=== PATIENT | male | born 1950 | race Caucasian/White ===

== ENCOUNTER 2020-03-04 09:25 | Outpatient (REF) | payer MEDICARE, BC, SELFPAY ==
[2020-03-04 10:26] LABS: MANUAL DIFF FLAG NO
[2020-03-04 10:31] LABS: Basophils Absolute Auto 0.1 X10*3/uL (0.0-0.2); Basophils Percent Auto 1.1 % (0-2); Eosinophils Absolute Auto 0.4 X10*3/uL (0.0-0.4); Eosinophils Percent Auto 5.1 % (0-4); Hematocrit 41.1 % (42-52); Hemoglobin 13.5 g/dl (14.0-18.0); Imm Gran Abs Auto 0.01 X10*3/uL (0.00-0.03); Imm Gran Pct Auto 0.1 % (0.0-0.4); Lymphocytes Absolute Auto 2.1 X10*3/uL (1.2-4.9); Lymphocytes Percent Auto 29.9 % (20-40); Mean Corpuscular HGB Conc 32.8 g/dl (31.0-36.0); Mean Corpuscular Volume 94.5 fL (80-98); Mean Platelet Volume 10.4 fL (9.4-12.4); Monocytes Percent Auto 13.6 % (2-11); Neutrophils Absolute Auto 3.5 X10*3/uL (2.0-8.3); Neutrophils Percent Auto 50.2 % (45-73); Platelet Count 281 X10*3/uL (160-400); Red Blood Count 4.35 X10*6/uL (4.60-5.80); Red Cell Distribution Width 13.8 % (11.0-16.0); White Blood Count 7.1 X10*3/uL (4.8-10.8)
[2020-03-04 10:39] LABS: Glucose Urine UA NEG (NEG); Leukocyte Esterase Urine NEG (NEG); Nitrite Urine NEG (NEG); Urine Blood TRACE (NEG); Urine Ketones NEG (NEG); Urine Protein NEG (NEG-TRACE)
[2020-03-04 10:46] LABS: Appearance Urine CLEAR; Color Urine YELLOW
[2020-03-04 10:56] LABS: Mucus Urine 1+ /LPF; WBC Urine 0-2 /HPF (0-4)
[2020-03-04 10:58] LABS: Alanine Aminotransferase 14 U/L (0-40); Albumin Level 3.9 g/dL (3.5-5.0); Alkaline Phosphatase 57 U/L (39-117); Anion Gap 13 (12-20); Aspartate Amino Transferase 16 U/L (5-37); Bilirubin Total 0.7 mg/dL (0.0-1.0); Blood Urea Nitrogen 19 mg/dL (9-16); Calcium 8.2 mg/dL (8.4-10.2); Carbon Dioxide 28 mmol/L (22-29); Chloride 104 mmol/L (96-108); Cholesterol 144 mg/dL; Estimated Glomerular Filt Rate > 60; Glucose Fasting 96 mg/dL (60-99); HDL Cholesterol 53 mg/dL; LDL Cholesterol Calculated 73 mg/dl; Potassium 4.7 mmol/l (3.3-5.1); Sodium 140 mmol/L (135-145); Total Protein 5.9 g/dL (6.5-8.0); Triglycerides 92 mg/dL
[2020-03-04 11:12] LABS: Prostate Specific Antigen 0.22 ng/mL (<0.05-4.0)
== END 2020-03-04 09:26 | disposition home or self-care (01) ==
LOC: HO.10HDL 09:25
PROVIDERS: Visit Provider Internal Medicine
DX: R35.1 Nocturia (principal); J44.9 Chronic obstructive pulmonary disease, unspecified; I10 Essential (primary) hypertension
CPT/HCPCS: 36415; 80053; 80061; 81001; 84153; 85025

== ENCOUNTER 2020-12-19 15:19 | Outpatient (REF) | payer MEDICARE, BC, SELFPAY ==
--- NOTE | ~2020-12-19 | XR_ITS ---
EXAMINATION: XR HIP, LEFT CLINICAL INFORMATION: Left hip pain. Status post fall. COMPARISON: None TECHNIQUE: AP pelvis and left hip 2 views. FINDINGS: AP PELVIS: There is normal symmetry of bilateral hip joints and SI joints. LEFT HIP: There is a nondisplaced fracture involving the greater trochanter. No dislocation or fracture involving the joint space or the head of the femur. The soft tissues are normal. XR/XR hip LT w PEL1V IMPRESSION: None nondisplaced fracture left greater trochanter. Bilateral hip joint space and SI joints are symmetrical and normal.
--- NOTE | ~2020-12-19 | XR_ITS ---
EXAMINATION: XR HIP, LEFT XR/XR hip LT 1V FINDINGS/IMPRESSION: Iterative imaging was performed to the previous exam. A left greater trochanter nondisplaced fracture is noted.
== END 2020-12-19 15:20 | disposition home or self-care (01) ==
LOC: HO.XRAY 15:19
PROVIDERS: PCP Internal Medicine; Visit Provider Internal Medicine
DX: M25.552 Pain in left hip (principal); Z91.81 History of falling
CPT/HCPCS: 73501; 73502

== ENCOUNTER 2020-12-25 06:38 | Outpatient (REF) | payer MEDICARE, OTHER, SELFPAY ==
--- NOTE | ~2020-12-25 | XR_ITS ---
EXAMINATION: PELVIS AND LEFT HIP X-RAY CLINICAL INFORMATION: Pain COMPARISON: Previous x-ray 12/19/2020 TECHNIQUE: One view of the pelvis and 2 views of the left hip FINDINGS: There is a comminuted nondisplaced fracture of the left greater trochanter. This appears unchanged. There is mild arthritis at both hip joints, left greater than right. There is a small 5 mm sclerotic lesion in the left femoral intertrochanteric region similar to previous exams that is stable and may represent an enchondroma or bone island. Bones of the pelvis are unremarkable. There is evidence of atherosclerotic disease. XR/XR pelvis 1-2V IMPRESSION: No change in the comminuted nondisplaced left greater trochanter fracture from recent exam.
--- NOTE | ~2020-12-25 | XR_ITS ---
EXAMINATION: PELVIS AND LEFT HIP X-RAY CLINICAL INFORMATION: Pain COMPARISON: Previous x-ray 12/19/2020 TECHNIQUE: One view of the pelvis and 2 views of the left hip FINDINGS: There is a comminuted nondisplaced fracture of the left greater trochanter. This appears unchanged. There is mild arthritis at both hip joints, left greater than right. There is a small 5 mm sclerotic lesion in the left femoral intertrochanteric region similar to previous exams that is stable and may represent an enchondroma or bone island. Bones of the pelvis are unremarkable. There is evidence of atherosclerotic disease. XR/XR hip LT min 2V IMPRESSION: No change in the comminuted nondisplaced left greater trochanter fracture from recent exam.
== END 2020-12-25 06:39 | disposition home or self-care (01) ==
LOC: HO.HOSX 06:38
PROVIDERS: Visit Provider Physician Assistant
DX: S72.112D Displaced fracture of greater trochanter of left femur, subsequent encounter for closed fracture with routine healing (principal)
CPT/HCPCS: 72170; 73502; 99202

== ENCOUNTER 2021-03-12 07:56 | Outpatient (REF) | payer MEDICARE, OTHER, SELFPAY ==
--- NOTE | ~2021-03-12 | XR_ITS ---
EXAMINATION: XR SHOULDER, RIGHT CLINICAL INFORMATION: Right shoulder pain COMPARISON: None TECHNIQUE: Right shoulder is imaged in 5 views. FINDINGS: There is no fracture, dislocation, destructive process. The acromioclavicular alignment is normal. The glenohumeral joint appears normal with no narrowing or erosive change. There are degenerative changes acromioclavicular joint with inferior spurring. There is fine calcific tendinosis distal infraspinatus tendon on the internal rotation view adjacent to the tuberosity. XR/XR shoulder RT min 2V IMPRESSION: 1. Degenerative changes acromioclavicular joint with inferior spurring. 2. Mild calcific tendinosis in region of distal infraspinatus.
[2021-03-12 08:22] LABS: MANUAL DIFF FLAG NO
[2021-03-12 09:14] LABS: Basophils Absolute Auto 0.1 X10*3/uL (0.0-0.2); Basophils Percent Auto 1.2 % (0-2); Eosinophils Absolute Auto 0.8 X10*3/uL (0.0-0.4); Eosinophils Percent Auto 10.1 % (0-4); Hematocrit 40.5 % (42.0-52.0); Hemoglobin 13.5 g/dl (14.0-18.0); Imm Gran Abs Auto 0.02 X10*3/uL (0.00-0.03); Imm Gran Pct Auto 0.3 % (0.0-0.4); Lymphocytes Absolute Auto 2.6 X10*3/uL (1.2-4.9); Lymphocytes Percent Auto 33.5 % (20-40); Mean Corpuscular HGB Conc 33.3 g/dl (31.0-36.0); Mean Corpuscular Hemoglobin 31.1 pg (27.0-33.0); Mean Corpuscular Volume 93.3 fL (80.0-98.0); Mean Platelet Volume 10.1 fL (9.4-12.4); Monocytes Absolute Auto 1.1 X10*3/uL (0.1-1.2); Monocytes Percent Auto 14.5 % (2-11); Neutrophils Absolute Auto 3.1 x10*3/uL (2.0-8.3); Neutrophils Percent Auto 40.4 % (45-73); Platelet Count 281 X10*3/uL (160-400); Red Blood Count 4.34 X10*6/uL (4.60-5.80); Red Cell Distribution Width 14.1 % (11.0-16.0); White Blood Count 7.7 X10*3/uL (4.8-10.8)
[2021-03-12 09:31] LABS: Alanine Aminotransferase 16 U/L (0-40); Alkaline Phosphatase 64 U/L (39-117); Anion Gap 10 (12-20); Aspartate Amino Transferase 16 U/L (5-37); Bilirubin Total 0.6 mg/dL (0.0-1.0); Blood Urea Nitrogen 20 mg/dL (9-16); Calcium 8.9 mg/dL (8.4-10.2); Carbon Dioxide 29 mmol/L (22-29); Chloride 103 mmol/L (96-108); Cholesterol 151 mg/dL; Estimated Glomerular Filt Rate > 60; Glucose Fasting 98 mg/dL (60-99); HDL Cholesterol 61 mg/dL; LDL Cholesterol Calculated 74 mg/dl; Potassium 4.2 mmol/L (3.3-5.1); Sodium 138 mmol/L (135-145); Total Protein 6.2 g/dL (6.5-8.0); Triglycerides 82 mg/dL
== END 2021-03-12 07:57 | disposition home or self-care (01) ==
LOC: HO.LAB 07:56
PROVIDERS: PCP Internal Medicine; Visit Provider Internal Medicine
DX: Z12.5 Encounter for screening for malignant neoplasm of prostate (principal); M25.511 Pain in right shoulder; I10 Essential (primary) hypertension; J44.9 Chronic obstructive pulmonary disease, unspecified; N40.0 Benign prostatic hyperplasia without lower urinary tract symptoms
CPT/HCPCS: 36415; 73030; 80053; 80061; 84153; 85025

== ENCOUNTER 2022-03-16 07:22 | Outpatient (REF) | payer BC, MEDICARE, SELFPAY ==
--- NOTE | ~2022-03-16 | XR_ITS ---
EXAMINATION: XR CHEST CLINICAL INFORMATION: Cough COMPARISON: Chest radiographs 02/04/2016, 05/08/2012 TECHNIQUE: 2 views of the chest were obtained. FINDINGS: There is hyperinflation similar to prior exam. The lungs are clear. The vascularity is normal. There is no airspace consolidation or groundglass opacity or effusion. Heart size normal. Costophrenic sulci are well-defined. The hilar and mediastinal contours are unremarkable. Bony structures again show accentuated thoracic kyphosis with multilevel degenerative disc changes old stable wedging midthoracic vertebral bodies. XR/XR chest 2V IMPRESSION: Hyperinflation. Lungs clear. No acute intrathoracic disease.
[2022-03-16 07:47] LABS: MANUAL DIFF FLAG NO
[2022-03-16 08:19] LABS: Basophils Absolute Auto 0.1 X10*3/uL (0.0-0.2); Basophils Percent Auto 1.2 % (0-2); Eosinophils Absolute Auto 0.5 X10*3/uL (0.0-0.4); Eosinophils Percent Auto 6.5 % (0-4); Hematocrit 43.5 % (42.0-52.0); Hemoglobin 14.3 g/dl (14.0-18.0); Imm Gran Abs Auto 0.01 X10*3/uL (0.00-0.03); Imm Gran Pct Auto 0.1 % (0.0-0.4); Lymphocytes Absolute Auto 2.7 X10*3/uL (1.2-4.9); Lymphocytes Percent Auto 37.1 % (20-40); Mean Corpuscular HGB Conc 32.9 g/dl (31.0-36.0); Mean Corpuscular Hemoglobin 30.8 pg (27.0-33.0); Mean Corpuscular Volume 93.8 fL (80.0-98.0); Mean Platelet Volume 9.9 fL (9.4-12.4); Monocytes Percent Auto 14.1 % (2-11); Platelet Count 294 X10*3/uL (160-400); Red Blood Count 4.64 X10*6/uL (4.60-5.80); Red Cell Distribution Width 14.2 % (11.0-16.0); White Blood Count 7.3 X10*3/uL (4.8-10.8)
[2022-03-16 09:18] LABS: Alanine Aminotransferase 17 U/L (0-40); Albumin Level 4.1 g/dL (3.5-5.0); Alkaline Phosphatase 56 U/L (39-117); Anion Gap 15 (12-20); Aspartate Amino Transferase 17 U/L (5-37); Bilirubin Total 0.5 mg/dL (0.0-1.0); Blood Urea Nitrogen 19 mg/dL (9-16); Calcium 9.2 mg/dL (8.4-10.2); Carbon Dioxide 27 mmol/L (22-29); Chloride 103 mmol/L (96-108); Cholesterol 163 mg/dL; Estimated Glomerular Filt Rate > 60; Glucose Fasting 103 mg/dL (60-99); HDL Cholesterol 65 mg/dL; Iron 180 mcg/dL (45-160); LDL Cholesterol Calculated 71 mg/dl; Percent Iron Saturation 61 % (15-50); Potassium 4.5 mmol/L (3.3-5.1); Prostate Specific Antigen 0.33 ng/mL (<0.05-4.0); Sodium 140 mmol/L (135-145); Total Iron Binding Capacity 294 mcg/dL (228-428); Total Protein 6.3 g/dL (6.5-8.0); Triglycerides 135 mg/dL; Unsaturated Iron Binding 114 ug/dL
== END 2022-03-16 07:23 | disposition home or self-care (01) ==
LOC: HO.LAB 07:22
PROVIDERS: PCP Internal Medicine; Visit Provider Internal Medicine
DX: R05.9 Cough, unspecified (principal); I10 Essential (primary) hypertension; J44.9 Chronic obstructive pulmonary disease, unspecified; N40.0 Benign prostatic hyperplasia without lower urinary tract symptoms; D64.9 Anemia, unspecified; R53.83 Other fatigue
CPT/HCPCS: 36415; 71046; 80053; 80061; 83540; 84153; 85025

== ENCOUNTER 2022-10-07 11:58 | Outpatient (REF) | payer BC, MEDICARE, SELFPAY ==
--- NOTE | ~2022-10-07 | XR_ITS ---
EXAMINATION: XR CHEST CLINICAL INFORMATION: Cough. Congestion. COMPARISON: Previous chest x-ray March 2022 TECHNIQUE: 2 views of the chest were obtained. FINDINGS: The cardiac and mediastinal contours are stable. The lungs are well inflated. The lungs are clear. No pleural effusion or pneumothorax. Increased kyphosis of the thoracic spine and degenerative changes. Old left rib fractures. XR/XR chest 2V IMPRESSION: No evidence for acute disease in the chest.
== END 2022-10-07 11:59 | disposition home or self-care (01) ==
LOC: HO.XRAY 11:58
PROVIDERS: PCP Internal Medicine; Visit Provider Internal Medicine
DX: R05.9 Cough, unspecified (principal); R09.89 Other specified symptoms and signs involving the circulatory and respiratory systems
CPT/HCPCS: 71046

== ENCOUNTER 2023-03-23 08:37 | Outpatient (REF) | payer MEDICARE, SELFPAY ==
[2023-03-23 09:00] LABS: MANUAL DIFF FLAG NO
[2023-03-23 09:10] LABS: Basophils Absolute Auto 0.1 X10*3/uL (0.0-0.2); Basophils Percent Auto 1.2 % (0-2); Eosinophils Absolute Auto 0.4 X10*3/uL (0.0-0.4); Eosinophils Percent Auto 6.1 % (0-4); Hematocrit 40.2 % (42.0-52.0); Hemoglobin 13.4 g/dl (14.0-18.0); Imm Gran Abs Auto 0.01 X10*3/uL (0.00-0.03); Imm Gran Pct Auto 0.1 % (0.0-0.4); Lymphocytes Absolute Auto 2.4 X10*3/uL (1.2-4.9); Lymphocytes Percent Auto 32.5 % (20-40); Mean Corpuscular HGB Conc 33.3 g/dl (31.0-36.0); Mean Corpuscular Hemoglobin 31.1 pg (27.0-33.0); Mean Corpuscular Volume 93.3 fL (80.0-98.0); Monocytes Absolute Auto 1.1 X10*3/uL (0.1-1.2); Monocytes Percent Auto 14.9 % (2-11); Neutrophils Absolute Auto 3.3 x10*3/uL (2.0-8.3); Neutrophils Percent Auto 45.2 % (45-73); Platelet Count 256 X10*3/uL (160-400); Red Blood Count 4.31 X10*6/uL (4.60-5.80); White Blood Count 7.3 X10*3/uL (4.8-10.8)
[2023-03-23 09:24] LABS: Alanine Aminotransferase 13 U/L (0-40); Alkaline Phosphatase 44 U/L (39-117); Anion Gap 9 (12-20); Aspartate Amino Transferase 17 U/L (5-37); Bilirubin Total 0.4 mg/dL (0.0-1.0); Blood Urea Nitrogen 17 mg/dL (9-16); Carbon Dioxide 29 mmol/L (22-29); Chloride 106 mmol/L (96-108); Cholesterol 148 mg/dL (<200); Estimated Glomerular Filt Rate > 60; Glucose Fasting 105 mg/dL (60-99); HDL Cholesterol 68 mg/dL (>40); LDL Cholesterol Calculated 69 mg/dL (<100); Potassium 4.1 mmol/L (3.3-5.1); Sodium 140 mmol/L (135-145); Total Protein 6.3 g/dL (6.5-8.0); Triglycerides 56 mg/dL (<150)
[2023-03-23 09:27] LABS: Appearance Urine Clear; Color Urine Yellow; Glucose Urine UA Negative (Negative); Leukocyte Esterase Urine Negative (Negative); Nitrite Urine Negative (Negative); Specific Gravity - Urine 1.015 (1.005-1.025); UMIC TRIGGER UA YES; Urine Blood Trace (Negative); Urine Ketones Negative (Negative); Urine Protein Negative (Neg-Trace)
[2023-03-23 09:32] LABS: Bacteria Urine None Seen (None Seen); Hyaline Casts Urine 0-2 /LPF (0-2); RBC Urine 0-2 /HPF (0-2); Squamous Epithelial Cell Urine 0-2 /HPF (0-2); WBC Urine 0-5 /HPF (0-5)
[2023-03-23 09:47] LABS: Prostate Specific Antigen Scr 0.45 ng/mL (<0.05-4.0)
== END 2023-03-23 08:38 | disposition home or self-care (01) ==
LOC: HO.LAB 08:37
PROVIDERS: PCP Internal Medicine; Visit Provider Internal Medicine
DX: Z12.5 Encounter for screening for malignant neoplasm of prostate (principal); I10 Essential (primary) hypertension; J44.9 Chronic obstructive pulmonary disease, unspecified; N40.0 Benign prostatic hyperplasia without lower urinary tract symptoms; Z72.0 Tobacco use
CPT/HCPCS: 36415; 80053; 80061; 81001; 84153; 85025

== ENCOUNTER 2023-07-25 14:25 | Inpatient (IN) | payer MEDICARE, SELFPAY ==
--- NOTE | ~2023-07-25 | XR_ITS ---
EXAMINATION: XR CHEST CLINICAL INFORMATION: Chest pain. COMPARISON: Chest radiograph dated 10/07/2022. TECHNIQUE: 2 views of the chest were obtained. FINDINGS: The trachea is in normal anatomic position. Heart size remains normal. The lungs remain somewhat hyperinflated consistent with chronic obstructive pulmonary physiology. There is no consolidation within either lung. No pleural effusion. No pneumothorax. No acute osseous abnormality. XR/XR chest 2V IMPRESSION: No acute cardiopulmonary disease. Stable appearance of the heart and lungs.
--- NOTE | 2023-07-25 14:27 | ECG_ITS ---
Test Reason : cp Blood Pressure : / mmHG Vent. Rate : 054 BPM Atrial Rate : 054 BPM P-R Int : 138 ms QRS Dur : 084 ms QT Int : 440 ms P-R-T Axes : 013 -43 -75 degrees QTc Int : 417 ms Sinus bradycardia Left axis deviation Low voltage QRS Inferior-posterior infarct , age undetermined ST & T wave abnormality, consider lateral ischemia Abnormal ECG When compared with ECG of 17-JUN-2009 13:58, Inferior-posterior infarct is now Present ST now depressed in Lateral leads T wave inversion now evident in Inferior leads T wave inversion now evident in Lateral leads Referred By: Heidy Chaudhari Electronically Signed By:Jake Kurtz
[2023-07-25 14:47] VITALS: BP 149/99; PULSE 55; RESP 16; TEMP 35.9; O2SAT 100; BMI 20.2
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
[2023-07-25 15:52] LABS: MANUAL DIFF FLAG NO
[2023-07-25 15:54] LABS: Basophils Absolute Auto 0.1 X10*3/uL (0.0-0.2); Basophils Percent Auto 1.1 % (0-2); Eosinophils Absolute Auto 0.3 X10*3/uL (0.0-0.4); Eosinophils Percent Auto 3.2 % (0-4); Hematocrit 39.6 % (42.0-52.0); Hemoglobin 13.4 g/dl (14.0-18.0); Imm Gran Abs Auto 0.03 X10*3/uL (0.00-0.03); Imm Gran Pct Auto 0.4 % (0.0-0.4); Lymphocytes Absolute Auto 2.3 X10*3/uL (1.2-4.9); Lymphocytes Percent Auto 29.6 % (20-40); Mean Corpuscular HGB Conc 33.8 g/dl (31.0-36.0); Mean Corpuscular Hemoglobin 31.8 pg (27.0-33.0); Mean Corpuscular Volume 94.1 fL (80.0-98.0); Mean Platelet Volume 10.2 fL (9.4-12.4); Monocytes Absolute Auto 1.1 X10*3/uL (0.1-1.2); Monocytes Percent Auto 14.2 % (2-11); Neutrophils Percent Auto 51.5 % (45-73); Platelet Count 246 X10*3/uL (160-400); Red Blood Count 4.21 X10*6/uL (4.60-5.80); Red Cell Distribution Width 14.1 % (11.0-16.0); White Blood Count 7.8 X10*3/uL (4.8-10.8)
[2023-07-25 16:04] LABS: INTERNATIONAL NORM RATIO 0.9 (0.9-1.1); Prothrombin Time 10.7 SEC (11.1-13.3)
[2023-07-25 16:07] LABS: Partial Thromboplastin Time 36.6 SEC (26.0-36.8)
[2023-07-25 16:08] LABS: Alanine Aminotransferase 31 U/L (0-40); Alkaline Phosphatase 57 U/L (39-117); Anion Gap 14 (12-20); Aspartate Amino Transferase 24 U/L (5-37); Bilirubin Total 0.3 mg/dL (0.0-1.0); Blood Urea Nitrogen 20 mg/dL (9-16); Calcium 9.2 mg/dL (8.4-10.2); Carbon Dioxide 26 mmol/L (22-29); Chloride 106 mmol/L (96-108); Creatinine Clr Calc Pharmacy 71.4; Estimated Glomerular Filt Rate > 60; Glucose Random 106 mg/dL (60-115); Magnesium 1.9 mg/dL (1.6-2.6); Potassium 4.3 mmol/L (3.3-5.1); Sodium 142 mmol/L (135-145); Total Protein 6.5 g/dL (6.5-8.0)
[2023-07-25 16:28] LABS: Troponin-I High Sensitivity 324.4 ng/L (<3.5-35.0)
[2023-07-25 16:33] LABS: Influenza A PCR NEGATIVE (Negative); Influenza B PCR NEGATIVE (Negative); Resp Syncy Virus RNA Qual PCR NEGATIVE (Negative); SARS COV2 PCR INHOUSE NEGATIVE (Negative)
--- NOTE | 2023-07-25 16:34 | ECG_ITS ---
Test Reason : Chest pain, elevated troponin Blood Pressure : / mmHG Vent. Rate : 052 BPM Atrial Rate : 052 BPM P-R Int : 146 ms QRS Dur : 084 ms QT Int : 490 ms P-R-T Axes : 062 -47 -34 degrees QTc Int : 455 ms Sinus bradycardia Left axis deviation Low voltage QRS Inferior-posterior infarct (cited on or before 25-JUL-2023) Abnormal ECG When compared with ECG of 25-JUL-2023 14:33, Non-specific change in ST segment in Anterior leads T wave inversion less evident in Lateral leads Referred By: Gaudencio Patino Electronically Signed By:Jake Kurtz
[2023-07-25 17:09] LABS: Bilirubin Direct 0.1 mg/dL (0.0-0.5)
[2023-07-25 17:11] VITALS: BP 152/74; PULSE 50; RESP 14; TEMP 36.8; O2SAT 99
--- NOTE | 2023-07-25 17:15 | MHC.EDTECH ---
THIS PCT JUST ASSUMED CARE OF PATIENT ,VITALS TAKEN ,3 RD EKG TAKEN AND WAS READ BY PROVIDER .
[2023-07-25] MEDS: Aspirin 81 MG TAB.CHEW 324 MG PO (17:34)
[2023-07-25 17:46] LABS: Appearance Urine Clear; Color Urine Yellow; Glucose Urine UA Negative (Negative); Leukocyte Esterase Urine Negative (Negative); Nitrite Urine Negative (Negative); Urine Blood Negative (Negative); Urine Ketones Negative (Negative); Urine Protein Negative (Neg-Trace)
--- NOTE | 2023-07-25 18:27 | MHC.CM.ED ---
Pt requesting to complete a HCP. CM met with patient and significant other, Lauryn Olmstead ([phone]). Pt is [id number]. Reviewed, completed and signed HCP. Copies given. Uploaded into [employer] and [facility] [employer]. HPC is Lauryn Olmstead. CM will follow for any discharge needs. Work up continuing.
[2023-07-25 19:13] LABS: Troponin-I High Sensitivity 301.1 ng/L (<3.5-35.0)
[2023-07-25 19:16] VITALS: BP 154/79; PULSE 64; RESP 15; TEMP 37.2; O2SAT 99
[2023-07-25] MEDS: Atorvastatin Calcium 80 MG TABLET PO (19:17)
[2023-07-25] MEDS: Heparin Sodium,Porcine 5,000 UNIT/ML VIAL 4000 UNIT IVPUSH (19:17)
--- NOTE | 2023-07-25 19:17 | PHA.MEDREC ---
Pharmacy Consult ? Medication Reconciliation Pharmacy has completed the medication reconciliation. Patient reported all medications. Kristy Gilbert, MasonD
[2023-07-25] MEDS: Heparin Sodium,Porcine/1/2NS 25,000 UNIT/250 ML IV.SOLN 8.12 UNIT IVCONT (19:19)
--- NOTE | 2023-07-25 19:21 | P.HPHOSP_ITS ---
History of Present Illness Date of Service: 07/25/23 <TRACE Pop - Last Filed: 07/25/23 19:36> Attending physician on admission: Elsie Thao <TRACE Pop - Last Filed: 07/25/23 19:36> Chief Complaint: chest pain <TRACE Pop - Last Filed: 07/25/23 19:36> 73 year old male with history of htn who is a current 1ppd smoker with 55 pack year history presented to the ED from PCP office for evaluation of chest pain. Pt reports an episode of exertional chest pain last tuesday that started after raking leaves/twigs. When he went inside he became diaphoretic and nauseas. He went to take a nap and upon waking pain was resolved. In similar fashion, was again raking yesterday which again erik on symptoms. States pain is initially felt in between the shoulder blades radiating to the front chest with associated nausea and daiphoresis. Episodes lasted about 30 minutes before resolving. Was seen by pcp today for symptoms who brought patient for evaluation. Denies history of similar history. No known history of CVD. On arrival, patient hypertensive to 154/79, vitals otherwise WNL. Hematology studies unremarkable. Renal function and lytes normal. Initial trop 324, repeat 301. UA unremarkable. Negative for COVID, flu, rsv. CXR negative. EKG shows NSR, rate 54 with t wave inversions noted in II,II, V5-V6. In the ED, given 324mg asa, 80mg atorvastatin, and started on heparin bolus/drip per protocol. He currently denies chest pain but will be admitted for management of NSTEMI. <TRACE Pop - Last Filed: 07/25/23 19:36> Review of Systems 2 Review of Systems: General: No fevers, malaise, unintentional weight loss HEENT: No blurred vision, diplopia. No sore throat, nasal congestion, rhinorrhea, sinus pain, ear pain Cardiovascular: +chest pain, +diaphoresis. No palpitations, or leg edema Respiratory: No shortness of breath, wheezing, cough GI: +nausea. No abdominal pain, vomiting, diarrhea, constipation, melena, hematochezia : No dysuria, hematuria, increased urinary frequency, decreased urinary output MSK: No myalgia, back pain Neuro: No headaches, weakness, paresthesias Skin: No rashes or lesions <TRACE Pop - Last Filed: 07/25/23 19:36> FORMERLY [facility], [facility]–1983 Medical History: Medical History (Updated 07/25/23 @ 19:31 by TRACE Pop) Smoker HTN (hypertension) <TRACE Pop - Last Filed: 07/25/23 19:36> Family History: Family History (Updated 12/25/20 @ 11:39 by Isidro Santana) Father Lung cancer <TRACE Pop - Last Filed: 07/25/23 19:36> Social History: Social History (Updated 12/25/20 @ 11:39 by Isidro Santana) Patient Tobacco Use Status: Current everyday Tobacco user Smoked in Last 30 Days: Yes Use of substances other than those prescribed or required for medical reasons: Yes Substance Use Type: Marijuana Advance Directives: Yes Advance Directives on File: Yes Advance Directives Date on File: 07/25/23 Nutrition Risks: No Nutritional Risk Current occupational status: retired Current occupation: rt handed <TRACE Pop - Last Filed: 07/25/23 19:36> Meds Allergies/Adverse reactions: Allergies Allergy/AdvReac Type Severity Reaction Status Date / Time lisinopril [Lisinopril] Allergy Unknown UNKNOWN Verified 12/25/20 11:31 <TRACE Pop - Last Filed: 07/25/23 19:36> Active Medications: Current Medications Acetaminophen (Acetaminophen 325 Mg Tablet) 650 mg PO Q6H PRN PRN Reason: Pain, Mild (Pain Scale 1-3) Amlodipine Besylate (Amlodipine Besylate 10 Mg Tablet) 10 mg PO DAILY [facility]; Protocol Aspirin (Aspirin Enteric Coated 81 Mg Tablet.Dr) 81 mg PO DAILY [facility] Atorvastatin Calcium (Atorvastatin Calcium 80 Mg Tablet) 80 mg PO DAILY [facility] Heparin Sodium (Porcine) (Heparin Sodium,Porcine 5,000 Unit/Ml Vial) 2,700 unit 40 unit/kg (2700 unit) IVPUSH PROTOCOL BOLUS PRN; Protocol PRN Reason: 40 unit/kg - Heparin Protocol Heparin Sodium (Porcine) (Heparin Sodium,Porcine 5,000 Unit/Ml Vial) 5,400 unit 80 unit/kg (5400 unit) IVPUSH PROTOCOL BOLUS PRN; Protocol PRN Reason: 80 unit/kg - Heparin Protocol Heparin Sodium/Sodium Chloride (Heparin Sodium,Porcine/1/2ns) 25,000 unit in 250 mls @ 0 mls/hr IVCONT .Q0M [facility]; Protocol Last Admin: 07/25/23 19:19 Dose: 12 units/kg/hr, 8.12 mls/hr Multivitamins/Vitamin C (Multivitamin Tablet) 1 tab PO DAILY [facility] Nicotine (Nicotine 21 Mg Patch.Td24) 21 mg TRANSDERMA DAILY [facility] Ondansetron HCl (Ondansetron Hcl 4 Mg/2 Ml Vial) 4 mg IVPUSH Q8H PRN PRN Reason: Nausea and Vomiting Senna (Sennosides 8.6 Mg Tablet) 17.2 mg PO BEDTIME PRN PRN Reason: Constipation Sodium Chloride (0.9 % Sodium Chloride Flush 3 Ml Syringe) 3 ml IVFLUSH QSHIFT [facility] <TRACE Pop - Last Filed: 07/25/23 19:36> Home medications: Home Medications Medication Instructions Recorded Confirmed Last Taken Type amlodipine 10 mg tablet 10 mg PO DAILY 12/25/20 07/25/23 07/25/23 History aspirin 81 mg tablet,delayed 81 mg PO DAILY 12/25/20 07/25/23 07/25/23 History release [id number]-qoo-BM 0.4 mg-calcium 162 1 tab PO DAILY 07/25/23 07/25/23 07/25/23 History mg-iron 18 rc-[id number]-gpuqxr tablet <TRACE Pop - Last Filed: 07/25/23 19:36> Physical Exam 2 Vital Signs and Narrative: Vital Signs: Last Vital Signs Temp 98.9 F 07/25/23 19:16 Pulse 64 07/25/23 19:16 Resp 15 07/25/23 19:16 BP 154/79 H 07/25/23 19:16 Pulse Ox 99 07/25/23 19:16 O2 Del Method Room Air 07/25/23 19:16 BMI result Body Mass Index 20.2 <TRACE Pop - Last Filed: 07/25/23 19:36> Constitutional - Awake and Alert, No apparent distress Eyes - PERRLA, EOMI Cardiovascular - S1S2, RRR, No edema Respiratory - Normal lung expansion, Normal respiratory effort, No respiratory distress, CTA bilaterally Gastrointestinal - NT / ND; +BS; No rebound or guarding Extremities - no calf tenderness bilaterally, no swelling Skin - Warm/Dry Neurological - Alert & oriented x3 Psychological - Appropriate affect <TRACE Pop - Last Filed: 07/25/23 19:36> Results Labs CBC and Chem 7: 07/25/23 15:48 07/25/23 15:48 <TRACE Pop - Last Filed: 07/25/23 19:36> Labs: Laboratory Results - last 24 hr 07/25/23 07/25/23 07/25/23 15:48 17:38 18:39 MCV 94.1 MCH 31.8 MCHC 33.8 RDW 14.1 Plt Count 246 MPV 10.2 Immature Gran % (Auto) 0.4 Neut % (Auto) 51.5 Lymph % (Auto) 29.6 [place] % (Auto) 14.2 H Eos % (Auto) 3.2 Baso % (Auto) 1.1 Lymph # (Auto) 2.3 [place] # (Auto) 1.1 Eos # (Auto) 0.3 Baso # (Auto) 0.1 Abs Immat Gran (auto) 0.03 Absolute Neuts (auto) 4.0 Absolute Nucleated RBC 0.000 Nucleated RBC % (auto) 0.0 PT 10.7 L INR 0.9 APTT 36.6 Anion Gap 14 Estim Creat Clear Calc 71.4 Estimated GFR > 60 Random Glucose 106 Calcium 9.2 Magnesium 1.9 Total Bilirubin 0.3 Direct Bilirubin 0.1 AST 24 ALT 31 Alkaline Phosphatase 57 Troponin I High Sens 324.4 H* 301.1 H* Total Protein 6.5 Albumin 4.0 Urine Color Yellow Urine Appearance Clear Urine pH 5.0 Ur Specific [place] 1.020 Urine Protein Negative Urine Glucose (UA) Negative Urine Ketones Negative Urine Blood Negative Urine Nitrite Negative Ur Leukocyte Esterase Negative Influenza Type A (PCR) NEGATIVE Influenza Type B (PCR) NEGATIVE RSV RNA Qual (PCR) NEGATIVE SARS-CoV-2 RNA (RT-PCR) NEGATIVE <TRACE Pop - Last Filed: 07/25/23 19:36> Imaging Radiologist's Impressions: Impressions Chest X-Ray 07/25/23 14:59 IMPRESSION: No acute cardiopulmonary disease. Stable appearance of the heart and lungs. <TRACE Pop - Last Filed: 07/25/23 19:36> Assessment and Plan (1) Acute non-ST elevation myocardial infarction (NSTEMI): Status: Acute <TRACE Pop - Last Filed: 07/25/23 19:36> 73 year old male with history of htn who is a current 1ppd smoker with 55 pack year history admitted for NSTEMI #Acute NSTEMI -EKG with t wave inversions II, III, V5-V6 -Initial trop 324, repeat 301. Last episode CP yesterday afternoon -Initiate Iv heparin bolus and drip per protocol -given asa 324mg, continue 81mg daily -lipid profile pending. Atorvastatin 80mg daily -start metoprolol 25mg BID -echo -cardiac diet -cardiology consult -monitor on tele #HTN -continue amlodipine 10mg daily. Add metoprolol 25mg BID #Cigarette smoker -cessation advised -patch for NRT DVT prophylaxis- heparin drip full code pt requires inpt stay at least 2 midnights for mangement of nstemi on heparin drip requiring expert consulation and probable transfer to tertiary care facility for cardiac catheterization <TRACE Pop - Last Filed: 07/25/23 19:36> 73 year old male with history of htn who is a current 1ppd smoker with 55 pack year history admitted for NSTEMI #Acute NSTEMI -EKG with t wave inversions II, III, V5-V6 -Initial trop 324, repeat 301. Last episode CP yesterday afternoon -Initiate Iv heparin bolus and drip per protocol -given asa 324mg, continue 81mg daily -lipid profile pending. Atorvastatin 40mg daily -start metoprolol 25mg BID -echo -cardiac diet -cardiology consult -monitor on tele #HTN -continue amlodipine 10mg daily. Add metoprolol 25mg BID #Cigarette smoker -cessation advised -patch for NRT DVT prophylaxis- heparin drip full code pt requires inpt stay at least 2 midnights for mangement of nstemi on heparin drip requiring expert consulation and probable transfer to tertiary care facility for cardiac catheterization <Elsie Thao MD - Last Filed: 07/25/23 19:41> Quality Stroke Does the patient have a stroke diagnosis?: No <TRACE Pop - Last Filed: 07/25/23 19:36> VTE Prior VTE?: No <TRACE Pop - Last Filed: 07/25/23 19:36> VTE Risk Level:: Medical - moderate - high <TRACE Pop - Last Filed: 07/25/23 19:36> VTE Device Contraindication: Treatment Not Indicated <TRACE Pop - Last Filed: 07/25/23 19:36> VTE Drug Contraindication: N/A - Med Ordered <TRACE Pop - Last Filed: 07/25/23 19:36>
--- NOTE | 2023-07-25 19:22 | PC.NURSE ---
This rn assumed care of pt. pt denies chest pain at this time. heparin drip started per protocol, repeat PTT due at 0119. pt a&ox4, respirations even and unlabored. at bedside discussing pt care.
[2023-07-25 19:51] LABS: Cholesterol 146 mg/dL (<200); HDL Cholesterol 70 mg/dL (>40); LDL Cholesterol Calculated 54 mg/dL (<100); Triglycerides 114 mg/dL (<150)
[2023-07-25] MEDS: Metoprolol Tartrate 25 MG TABLET PO (20:18)
--- NOTE | 2023-07-25 20:19 | PC.NURSE ---
pt medicated per mar, pt tolerated well with water.
--- NOTE | 2023-07-25 21:03 | MHC.CM.ED ---
CM attempted to meet with patient. Pt sleeping soundly with blanket over his head. Will complete CM interview and d/c planning when patient wakes.
[2023-07-25 21:47] VITALS: BP 132/75; PULSE 53; RESP 20; TEMP 36.3; O2SAT 97
--- NOTE | 2023-07-25 21:49 | MHC.EDTECH ---
2200 rounding done ,vitals taken ,I & O done ,fresh fluids given ,Pt resting in bed ,Call sotelo with in Pt reach .
[2023-07-25 23:40] VITALS: BP 131/86; PULSE 58; RESP 17; TEMP 36.5; O2SAT 99
--- NOTE | 2023-07-26 01:29 | PC.NURSE ---
HD PTT result- no rate change needed per mar. repeat PTT HD 0730.
[2023-07-26 01:48] LABS: PTT Heparin Drip 72.3 SEC (53-77.9)
[2023-07-26 06:10] LABS: MANUAL DIFF FLAG NO
[2023-07-26 06:14] VITALS: BP 121/74; PULSE 54; RESP 17; TEMP 36.7; O2SAT 98
[2023-07-26 06:21] LABS: INTERNATIONAL NORM RATIO 0.9 (0.9-1.1); Prothrombin Time 11.3 SEC (11.1-13.3)
[2023-07-26 06:36] LABS: Anion Gap 12 (12-20); Blood Urea Nitrogen 19 mg/dL (9-16); Calcium 8.7 mg/dL (8.4-10.2); Carbon Dioxide 26 mmol/L (22-29); Chloride 108 mmol/L (96-108); Creatinine Clr Calc Pharmacy 75.2; Estimated Glomerular Filt Rate > 60; Glucose Random 88 mg/dL (60-115); Potassium 3.9 mmol/L (3.3-5.1); Sodium 142 mmol/L (135-145)
[2023-07-26 06:53] LABS: Basophils Absolute Auto 0.1 X10*3/uL (0.0-0.2); Basophils Percent Auto 1.1 % (0-2); Eosinophils Absolute Auto 0.5 X10*3/uL (0.0-0.4); Eosinophils Percent Auto 6.2 % (0-4); Hematocrit 37.7 % (42.0-52.0); Hemoglobin 12.6 g/dl (14.0-18.0); Imm Gran Abs Auto 0.01 X10*3/uL (0.00-0.03); Imm Gran Pct Auto 0.1 % (0.0-0.4); Lymphocytes Absolute Auto 3.2 X10*3/uL (1.2-4.9); Lymphocytes Percent Auto 42.7 % (20-40); Mean Corpuscular HGB Conc 33.4 g/dl (31.0-36.0); Mean Corpuscular Hemoglobin 31.4 pg (27.0-33.0); Mean Platelet Volume 11.2 fL (9.4-12.4); Monocytes Absolute Auto 1.1 X10*3/uL (0.1-1.2); Monocytes Percent Auto 14.3 % (2-11); Neutrophils Absolute Auto 2.7 x10*3/uL (2.0-8.3); Neutrophils Percent Auto 35.6 % (45-73); Platelet Count 234 X10*3/uL (160-400); Red Blood Count 4.01 X10*6/uL (4.60-5.80); Red Cell Distribution Width 13.8 % (11.0-16.0); White Blood Count 7.5 X10*3/uL (4.8-10.8)
--- NOTE | 2023-07-26 07:00 | CA_ITS ---
Transthoracic Echocardiogram Patient (Last, First, Middle): Denis Martinez J Gender: Male Date of : 1950 Age: 73 Procedure Date: 07/26/2023 Procedure Type: Transthoracic Echocardiogram Location: [facility] [place] Height: 175.26 cm Weight: 61.69 kg BSA: 1.75 m2 Heart Rate: bpm BP: 118 / 68 mmHg [place] Former Hand: Referring MD: Lakshmi WOODWARD Symptoms: nstemi Study Quality: Adequate ECG Rhythm: Sinus Conclusions: - Normal left ventricular cavity size. There is mildly increased left ventricular wall thickness. The left ventricular systolic function is mild to moderately decreased. The visually estimated ejection fraction is between 35-40%. - The apical inferior segment is hypokinetic. - The basal inferior and mid inferior segments are akinetic. - Mildly increased right ventricular cavity size. There is normal right ventricular systolic function. Findings Left Ventricle Normal left ventricular cavity size. There is mildly increased left ventricular wall thickness. The left ventricular systolic function is mild to moderately decreased. The visually estimated ejection fraction is between 35-40%. There is evidence of regional wall motion abnormalities. Abnormal diastolic function is noted. Spectral Doppler is indicative of an impaired relaxation filling pattern. E/E prime ratio is between 8 and 15 consistent with indeterminate filling pressures. Wall Motion Rest Echo Findings The apical inferior segment is hypokinetic. The basal inferior and mid inferior segments are akinetic. Right Ventricle Mildly increased right ventricular cavity size. There is normal right ventricular systolic function. Atria The left atrium is severely dilated. Aortic Valve The aortic valve was not well visualized. There is no aortic valve stenosis. There is no aortic valve regurgitation. Mitral Valve The mitral valve appears normal. There is mild mitral valve regurgitation. There is no mitral valve stenosis. Pulmonic Valve The pulmonic valve is likely normal. Tricuspid Valve Normal tricuspid valve structure. There is no tricuspid valve regurgitation. The right ventricular systolic pressure is 33 mmHg. Normal right atrial pressure. There is no evidence of pulmonary hypertension. Great Vessels There is mild dilatation of the ascending aorta measuring 3.60 cm. The visualized portions of the pulmonary artery and branches are normal. Venous The inferior vena cava is normal in size and collapses greater than 50% with inspiration. Pericardium/Pleural There is no evidence of pericardial effusion. Prior Study Comparison No prior study available for comparison. Measurements 2D Linear Measurements IVSd: 1.11 0.6-0.9/0.6-1.0 cm LVIDd: 3.62 3.9-5.3/4.2-5.9 cm LVIDd Index: 2.07 2.4-3.2/2.2-3.1 cm/m2 LVIDs: 3.03 2.0-3.6 cm LVPWd: 1.15 0.7-1.1 cm Ao Root: 3.40 2.1-3.5 cm LA Diam: 4.00 2.7-3.8/3.0-4.0 cm LAIDs Index: 2.29 1.5-2.3 cm/m2 LV Mass: 162.09 67-162/88-224 g LV Mass Index: 92.63 43-95/49-115 g/m2 LVOT Diam: 2.10 3.0+(-)1.3 cm 2D Systolic Function EF 4C: 34.40 >55% EF 2C: 37.40 >55% EF BiP: 36.30 >55% Mitral Valve MV Pk E: 0.51 MV PK A: 0.78 MV Decel Time: 440.00 E/A: 0.70 E'Lateral: 5.11 E'Medial: 3.92 E/E' Med: 13.00 E/E' Lat: 10.00 PHT: 129.00 MVA PHT: 1.71 [place]: 1.16 Aortic Valve AoV Pk Jayesh: 1.29 AoV Mn Jayesh: 0.76 AoV VTI: 0.30 AoV Pk Grad: 7.00 Aov Mn Grad: 3.00 SHELLY Cont.VTI: 2.57 LVOT LVOT Pk Jayesh: 0.90 LVOT Mn Jayesh: 0.52 LVOT VTI: 0.22 LVOT Pk Grad: 3.00 LVOT Mn Grad: 1.00 LVOT Diam: 2.10 LVOT Area: 3.46 Diastolic Function MV Pk E: 0.51 MV Pk A: 0.78 E/A: 0.70 E'Medial: 3.92 E/E' Med: 13.00 E' Laterial: 5.11 E/E' Lat: 10.00 Right Ventricle TAPSE (mm): 24.00 TVS' Jayesh: 11.00 Tricuspid Valve TR Pk Jayesh: 2.74 TR Pk Grad: 30.00 RA Press: 3.00 RVSP: 33.00 Great Vessels Aorta Ao Root-2D: 3.40 2.0-3.7 cm Ao Asc: 3.60 2.1-3.4 cm Pulmonary Valve PV Pk Jayesh: 0.76 Peak PV Grad: 2.00 Updated in Other Vendor System with Status of Final Jake Kurtz MD electronically signed on 07/26/2023 11:46:30 AM with status of Final
[2023-07-26 07:59] LABS: PTT Heparin Drip 64.9 SEC (53-77.9)
[2023-07-26 08:13] VITALS: BP 146/64; PULSE 55; RESP 16; TEMP 36.5; O2SAT 100
[2023-07-26 08:35] VITALS: BP 138/78; PULSE 53; RESP 20; TEMP 36.1; O2SAT 97
[2023-07-26 08:51] VITALS: BMI 20.2
[2023-07-26] MEDS: Metoprolol Tartrate 25 MG TABLET PO (09:22)
[2023-07-26] MEDS: Aspirin Enteric Coated 81 MG TABLET.DR PO (09:22)
[2023-07-26] MEDS: amLODIPine Besylate 10 MG TABLET PO (09:22)
[2023-07-26] MEDS: Multivitamin TABLET 1 TAB PO (09:22)
[2023-07-26] MEDS: Nicotine 21 MG PATCH.TD24 TRANSDERMA (09:23)
--- NOTE | 2023-07-26 09:31 | MHC.CM.PN ---
Addendum entered by Danyelle Rinaldi 07/26/23 09:33: Pt is independent, no home health services. He is a , but does not use their medical services. HCP on file and confirmed: ronald Olmstead, PCP confirmed: Dr. Quintero. Pt said he is being transferred to [facility]. CM will follow and assist as needed with DC plan. Original Note: IMM 07/26/23.,
--- NOTE | 2023-07-26 11:00 | PM.DS ---
DS: Providers Provider Date of Service: 07/26/23 Date of admission: 07/25/23 19:06 Primary care physician: Duc Quintero MD Consults: 07/25/23 19:11 Consult to Cardiology Routine Consulting Provider: [facility] Cardiovascular Services Reason for consultation: nstemi DS: Diagnosis Discharge Diagnosis (1) Acute non-ST elevation myocardial infarction (NSTEMI): Status: Acute DS: Summary Hospital Course Hospital Course: History and physical as per admitting provider. 73 year old male with history of htn who is a current 1ppd smoker with 55 pack year history presented to the ED from PCP office for evaluation of chest pain. Pt reports an episode of exertional chest pain last tuesday that started after raking leaves/twigs. When he went inside he became diaphoretic and nauseas. He went to take a nap and upon waking pain was resolved. In similar fashion, was again raking yesterday which again erik on symptoms. States pain is initially felt in between the shoulder blades radiating to the front chest with associated nausea and daiphoresis. Episodes lasted about 30 minutes before resolving. Was seen by pcp today for symptoms who brought patient for evaluation. Denies history of similar history. No known history of CVD. On arrival, patient hypertensive to 154/79, vitals otherwise WNL. Hematology studies unremarkable. Renal function and lytes normal. Initial trop 324, repeat 301. UA unremarkable. Negative for COVID, flu, rsv. CXR negative. EKG shows NSR, rate 54 with t wave inversions noted in II,II, V5-V6. In the ED, given 324mg asa, 80mg atorvastatin, and started on heparin bolus/drip per protocol. He currently denies chest pain but will be admitted for management of NSTEMI 73-year-old man treated for acute NSTEMI with T-wave inversions to lead 2, 3 and V5 through V6. Initial troponin 324, repeat 301. Had episodes of chest pain yesterday but resolved since. Started on IV heparin with full-dose aspirin and subsequent 81 mg daily of aspirin. Atorvastatin 80 mg and metoprolol 25 mg b.i.d. started. Echocardiogram completed. Patient is hemodynamically stable. Seen evaluated by Cardiology with recommendation for transfer to [facility] for cardiac catheterization. Patient in agreement with this plan. Hypertension. Stable blood pressure. Continue amlodipine Cigarette smoker. Discussed importance of smoking cessation, nicotine replacement therapy with patch Time Attestation Discharge Coordination Time (in mins): 45 Quality: Safe Use of Opioids Does Pt have an Active Cancer Diagnosis on the Problem List?: No Quality: Stroke Does the patient have a stroke diagnosis?: No Physical Exam Vital Signs: Vital Signs: Last Vital Signs Temp 96.9 F 07/26/23 08:35 Pulse 53 07/26/23 08:35 Resp 20 07/26/23 08:35 BP 138/78 07/26/23 08:35 Pulse Ox 97 07/26/23 08:35 O2 Del Method Room Air 07/26/23 08:35 BMI result Body Mass Index 20.2 Appearing in no acute distress head is normocephalic atraumatic eyes pupils are PERRLA sclera is anicteric mouth throat mucous membranes are intact and moist neck is supple no lymphadenopathy, no JVD noted lung sounds are clear to auscultation heart regular rate rhythm, clear S1, S2 positive bowel sounds, abdomen is soft, nontender neuro patient is alert x3, no focal deficits DS: Data Data Completed and Pending Labs on day of discharge: Laboratory Results - last 24 hr 07/25/23 07/25/23 07/25/23 15:48 17:38 18:39 WBC 7.8 RBC 4.21 L Hgb 13.4 L Hct 39.6 L MCV 94.1 MCH 31.8 MCHC 33.8 RDW 14.1 Plt Count 246 MPV 10.2 Immature Gran % (Auto) 0.4 Neut % (Auto) 51.5 Lymph % (Auto) 29.6 [place] % (Auto) 14.2 H Eos % (Auto) 3.2 Baso % (Auto) 1.1 Lymph # (Auto) 2.3 [place] # (Auto) 1.1 Eos # (Auto) 0.3 Baso # (Auto) 0.1 Abs Immat Gran (auto) 0.03 Absolute Neuts (auto) 4.0 Absolute Nucleated RBC 0.000 Nucleated RBC % (auto) 0.0 PT 10.7 L INR 0.9 APTT 36.6 aPTT Heparin Protocol Sodium 142 Potassium 4.3 Chloride 106 Carbon Dioxide 26 Anion Gap 14 BUN 20 H Creatinine 0.82 Estim Creat Clear Calc 71.4 Estimated GFR > 60 Random Glucose 106 Calcium 9.2 Magnesium 1.9 Total Bilirubin 0.3 Direct Bilirubin 0.1 AST 24 ALT 31 Alkaline Phosphatase 57 Troponin I High Sens 324.4 H* 301.1 H* Total Protein 6.5 Albumin 4.0 Triglycerides 114 Cholesterol 146 LDL Cholesterol, Calc 54 HDL Cholesterol 70 Urine Color Yellow Urine Appearance Clear Urine pH 5.0 Ur Specific [place] 1.020 Urine Protein Negative Urine Glucose (UA) Negative Urine Ketones Negative Urine Blood Negative Urine Nitrite Negative Ur Leukocyte Esterase Negative Influenza Type A (PCR) NEGATIVE Influenza Type B (PCR) NEGATIVE RSV RNA Qual (PCR) NEGATIVE SARS-CoV-2 RNA (RT-PCR) NEGATIVE 07/26/23 07/26/23 07/26/23 01:29 04:52 07:45 WBC 7.5 RBC 4.01 L Hgb 12.6 L Hct 37.7 L MCV 94.0 MCH 31.4 MCHC 33.4 RDW 13.8 Plt Count 234 MPV 11.2 Immature Gran % (Auto) 0.1 Neut % (Auto) 35.6 L Lymph % (Auto) 42.7 H [place] % (Auto) 14.3 H Eos % (Auto) 6.2 H Baso % (Auto) 1.1 Lymph # (Auto) 3.2 [place] # (Auto) 1.1 Eos # (Auto) 0.5 H Baso # (Auto) 0.1 Abs Immat Gran (auto) 0.01 Absolute Neuts (auto) 2.7 Absolute Nucleated RBC 0.000 Nucleated RBC % (auto) 0.0 PT 11.3 INR 0.9 APTT aPTT Heparin Protocol 72.3 64.9 Sodium 142 Potassium 3.9 Chloride 108 Carbon Dioxide 26 Anion Gap 12 BUN 19 H Creatinine 0.85 Estim Creat Clear Calc 75.2 Estimated GFR > 60 Random Glucose 88 Calcium 8.7 Magnesium Total Bilirubin Direct Bilirubin AST ALT Alkaline Phosphatase Troponin I High Sens Total Protein Albumin Triglycerides Cholesterol LDL Cholesterol, Calc HDL Cholesterol Urine Color Urine Appearance Urine pH Ur Specific [place] Urine Protein Urine Glucose (UA) Urine Ketones Urine Blood Urine Nitrite Ur Leukocyte Esterase Influenza Type A (PCR) Influenza Type B (PCR) RSV RNA Qual (PCR) SARS-CoV-2 RNA (RT-PCR) Discharge Plan Discharge Anticipated Discharge Date/Time: 07/26/23 10:55 Patient Disposition: Xfer Acute Care Hospital Discharge Diagnosis: NSTEMI Referrals: Duc Quintero MD [Primary Care Provider] - 1 Week Discharge Medications: New atorvastatin 40 mg Tablet 40 mg PO BEDTIME Qty: 30 0RF metoprolol tartrate 25 mg Tablet 25 mg PO BID Qty: 60 0RF Protocol: Hold for SBP/HR < HOLD for SBP < : 90 HOLD for HR < : 60 heparin(porcine) in 0.45% NaCl 25,000 unit/250 mL Parenteral Solution 25,000 unit continuous IV infusion .Q0M Qty: 6000 0RF Continued li-uao-UM-Wl-Ap-cmxuxbv-lutein 0.4-162-18 mg Tablet 1 tab PO DAILY amlodipine 10 mg tablet 10 mg PO DAILY aspirin 81 mg tablet,delayed release (DR/EC) 81 mg PO DAILY Discharge Orders: Discharge Order (Routine); Ordered 07/26/23 Ordered By: Kirstin Escobar Diet: Advance to usual diet Activity on Discharge: As tolerated Stand Alone Forms: Patient Portal Discharge page Care Plan Goals: IV heparin, asa Health Concerns: NSTEMI Plan of Treatment: Transfer to tertiary care facility for cardiac catheterization Assessment: See discharge summary Discharge Date/Time: 07/26/23 12:41
[2023-07-26 11:05] VITALS: BP 134/72; PULSE 49; RESP 20; TEMP 36.7; O2SAT 97
--- NOTE | 2023-07-26 11:16 | P.CONCA_ITS ---
History of Present Illness History of Present Illness Date of Service: 07/26/23 Requesting physician: Kirstin Escobar Chief complaint: chest pain, NSTEMI Narrative: 73-year-old gentleman with background history of hypertension, tobacco abuse and hyperlipidemia who is presenting with chest pain. Approximately 1 week ago he was working in the [employer] and went inside the house and started having upper back and chest discomfort which lasted for 1-1/2 hour. He said he laid down and went to sleep and woke up approximately 45 minutes to 1 hour later (he is unsure about the duration) and was pain-free. He said subsequent to that he did fine for the week till day for yesterday when he again went into the ER to work and had similar symptoms. He called his primary care physician and was seen in the office and an EKG was performed which showed changes consistent with recent inferoposterior wall infarct. He was urgently sent to the emergency department and admitted. His initial troponins in the ER were 300 and they are flat. EKGs showing inferior and posterior recent infarct changes. Echo done which is showing eteg-mr-uqzbnono LV dysfunction with inferior wall motion abnormality. He is on heparin drip. He is currently asymptomatic as mentioned. He is a active smoker. No previous history of coronary disease. [facility] Past Medical History Medical History Smoker HTN (hypertension) Family History Family History (Updated 12/25/20 @ 11:39 by Isidro Santana) Father Lung cancer Social History Social History (Updated 12/25/20 @ 11:39 by Isidro Santana) Household Members: Significant Other Housing: House Patient Tobacco Use Status: Current everyday Tobacco user Tobacco use type: Cigarette e-Cigarette/Vaping Use: Currently Using Substance Use Type: Marijuana Advance Directives Date on File: 07/25/23 service: Yes Current occupational status: retired Current occupation: rt handed Meds Allergies Allergy/AdvReac Type Severity Reaction Status Date / Time lisinopril [Lisinopril] Allergy Unknown UNKNOWN Verified 12/25/20 11:31 Active Medications: Current Medications Acetaminophen (Acetaminophen 325 Mg Tablet) 650 mg PO Q6H PRN PRN Reason: Pain, Mild (Pain Scale 1-3) Amlodipine Besylate (Amlodipine Besylate 10 Mg Tablet) 10 mg PO DAILY THERESE; Protocol Last Admin: 07/26/23 09:22 Dose: 10 mg Aspirin (Aspirin Enteric Coated 81 Mg Tablet.Dr) 81 mg PO DAILY [facility] Last Admin: 07/26/23 09:22 Dose: 81 mg Atorvastatin Calcium (Atorvastatin Calcium 40 Mg Tablet) 40 mg PO BEDTIME [facility] Heparin Sodium (Porcine) (Heparin Sodium,Porcine 5,000 Unit/Ml Vial) 2,700 unit 40 unit/kg (2700 unit) IVPUSH PROTOCOL BOLUS PRN; Protocol PRN Reason: 40 unit/kg - Heparin Protocol Heparin Sodium (Porcine) (Heparin Sodium,Porcine 5,000 Unit/Ml Vial) 5,400 unit 80 unit/kg (5400 unit) IVPUSH PROTOCOL BOLUS PRN; Protocol PRN Reason: 80 unit/kg - Heparin Protocol Heparin Sodium/Sodium Chloride (Heparin Sodium,Porcine/1/2ns) 25,000 unit in 250 mls @ 0 mls/hr IVCONT .Q0M [facility]; Protocol Last Titration: 07/26/23 01:29 Dose: 12 units/kg/hr, 8.12 mls/hr Metoprolol Tartrate (Metoprolol Tartrate 25 Mg Tablet) 25 mg PO BID [facility]; Protocol Last Admin: 07/26/23 09:22 Dose: 25 mg Multivitamins/Vitamin C (Multivitamin Tablet) 1 tab PO DAILY [facility] Last Admin: 07/26/23 09:22 Dose: 1 tab Nicotine (Nicotine 21 Mg Patch.Td24) 21 mg TRANSDERMA DAILY [facility] Last Admin: 07/26/23 09:23 Dose: 21 mg Ondansetron HCl (Ondansetron Hcl 4 Mg/2 Ml Vial) 4 mg IVPUSH Q8H PRN PRN Reason: Nausea and Vomiting Senna (Sennosides 8.6 Mg Tablet) 17.2 mg PO BEDTIME PRN PRN Reason: Constipation Sodium Chloride (0.9 % Sodium Chloride Flush 3 Ml Syringe) 3 ml IVFLUSH QSHIFT [facility] Last Admin: 07/26/23 07:49 Dose: Not Given Home Medications Medication Instructions Recorded Confirmed Last Taken Type amlodipine 10 mg tablet 10 mg PO DAILY 12/25/20 07/25/23 07/25/23 History aspirin 81 mg tablet,delayed 81 mg PO DAILY 12/25/20 07/25/23 07/25/23 History release vicxpwrm-ijv-MA 0.4 mg-calcium 162 1 tab PO DAILY 07/25/23 07/25/23 07/25/23 History mg-iron 18 it-iaxodjb-pmanxm tablet Physical Exam 2 Vital Signs: Vital Signs: Last Vital Signs Temp 98.1 F 07/26/23 11:05 Pulse 49 L 07/26/23 11:05 Resp 20 07/26/23 11:05 BP 134/72 07/26/23 11:05 Pulse Ox 97 07/26/23 11:05 O2 Del Method Room Air 07/26/23 11:05 BMI result Body Mass Index 20.2 GENERAL APPEARANCE: in no acute distress, pleasant. NECK: no carotid bruit, no jugular venous distention. SKIN: no suspicious lesions, warm and dry. HEART: no murmurs, regular rate and rhythm. LUNGS: clear to auscultation bilaterally. ABDOMEN: soft, nontender. EXTREMITIES: no edema. PERIPHERAL PULSES: equal. NEUROLOGIC: No gross deficits, AAO X 3 Objective Labs and Meds 07/26/23 04:52 07/26/23 04:52 Lab results: Laboratory Results - last 24 hr 07/25/23 07/25/23 07/25/23 15:48 17:38 18:39 WBC 7.8 RBC 4.21 L Hgb 13.4 L Hct 39.6 L MCV 94.1 MCH 31.8 MCHC 33.8 RDW 14.1 Plt Count 246 MPV 10.2 Immature Gran % (Auto) 0.4 Neut % (Auto) 51.5 Lymph % (Auto) 29.6 Wilson % (Auto) 14.2 H Eos % (Auto) 3.2 Baso % (Auto) 1.1 Lymph # (Auto) 2.3 Wilson # (Auto) 1.1 Eos # (Auto) 0.3 Baso # (Auto) 0.1 Abs Immat Gran (auto) 0.03 Absolute Neuts (auto) 4.0 Absolute Nucleated RBC 0.000 Nucleated RBC % (auto) 0.0 PT 10.7 L INR 0.9 APTT 36.6 aPTT Heparin Protocol Sodium 142 Potassium 4.3 Chloride 106 Carbon Dioxide 26 Anion Gap 14 BUN 20 H Creatinine 0.82 Estim Creat Clear Calc 71.4 Estimated GFR > 60 Random Glucose 106 Calcium 9.2 Magnesium 1.9 Total Bilirubin 0.3 Direct Bilirubin 0.1 AST 24 ALT 31 Alkaline Phosphatase 57 Troponin I High Sens 324.4 H* 301.1 H* Total Protein 6.5 Albumin 4.0 Triglycerides 114 Cholesterol 146 LDL Cholesterol, Calc 54 HDL Cholesterol 70 Urine Color Yellow Urine Appearance Clear Urine pH 5.0 Ur Specific [place] 1.020 Urine Protein Negative Urine Glucose (UA) Negative Urine Ketones Negative Urine Blood Negative Urine Nitrite Negative Ur Leukocyte Esterase Negative Influenza Type A (PCR) NEGATIVE Influenza Type B (PCR) NEGATIVE RSV RNA Qual (PCR) NEGATIVE SARS-CoV-2 RNA (RT-PCR) NEGATIVE 07/26/23 07/26/23 07/26/23 01:29 04:52 07:45 WBC 7.5 RBC 4.01 L Hgb 12.6 L Hct 37.7 L MCV 94.0 MCH 31.4 MCHC 33.4 RDW 13.8 Plt Count 234 MPV 11.2 Immature Gran % (Auto) 0.1 Neut % (Auto) 35.6 L Lymph % (Auto) 42.7 H Wilson % (Auto) 14.3 H Eos % (Auto) 6.2 H Baso % (Auto) 1.1 Lymph # (Auto) 3.2 Wilson # (Auto) 1.1 Eos # (Auto) 0.5 H Baso # (Auto) 0.1 Abs Immat Gran (auto) 0.01 Absolute Neuts (auto) 2.7 Absolute Nucleated RBC 0.000 Nucleated RBC % (auto) 0.0 PT 11.3 INR 0.9 APTT aPTT Heparin Protocol 72.3 64.9 Sodium 142 Potassium 3.9 Chloride 108 Carbon Dioxide 26 Anion Gap 12 BUN 19 H Creatinine 0.85 Estim Creat Clear Calc 75.2 Estimated GFR > 60 Random Glucose 88 Calcium 8.7 Magnesium Total Bilirubin Direct Bilirubin AST ALT Alkaline Phosphatase Troponin I High Sens Total Protein Albumin Triglycerides Cholesterol LDL Cholesterol, Calc HDL Cholesterol Urine Color Urine Appearance Urine pH Ur Specific [place] Urine Protein Urine Glucose (UA) Urine Ketones Urine Blood Urine Nitrite Ur Leukocyte Esterase Influenza Type A (PCR) Influenza Type B (PCR) RSV RNA Qual (PCR) SARS-CoV-2 RNA (RT-PCR) Imaging Radiologist's impression: Impressions Chest X-Ray 07/25/23 14:59 IMPRESSION: No acute cardiopulmonary disease. Stable appearance of the heart and lungs. Assessment and Plan (1) Acute non-ST elevation myocardial infarction (NSTEMI): Status: Acute Plan [age] year gentleman presenting with chest pain and NSTEMI. His EKGs showing evolved posterior and inferior infarct concerning for occlusion of the right coronary artery. Inferior wall is akinetic but not thinned out. Biomarkers are not significantly elevated for a recent infarct also. I have discussed with him that he needs diagnostic angiography to define his anatomy and treat right coronary artery if there is some flow through the artery. If the artery is 100% block then I think medical management would be the best way to treat him. Obviously these decisions have to be made after we have angiographic pictures of his coronary arteries. He is agreeable for cardiac catheterization. Pros and cons discussed with the patient and we will arrange a transfer to [facility]. In the meantime he will continue metoprolol, atorvastatin, aspirin amlodipine. He will continue heparin drip. Thank you for allowing me to participate in the care of your patient. Please feel free to contact me if you have any questions. Procedures Date of Service Date of Service: 07/26/23
== END 2023-07-26 12:41 | disposition short-term general hospital (02) | DRG 282 ==
LOC: HO.ED 18:37 → HO.EDOVER 19:18 → HO.IMC 07-26 07:36
PROVIDERS: Physician Assistant Medical; Student in an Organized Health Care Education/Training Program; Admitting Provider Physician Assistant; Emergency Provider Emergency Medicine Emergency Medical Services; PCP Internal Medicine; Visit Provider Nurse Practitioner Acute Care
DX: I21.4 Non-ST elevation (NSTEMI) myocardial infarction (principal); I10 Essential (primary) hypertension; F17.210 Nicotine dependence, cigarettes, uncomplicated; Z71.6 Tobacco abuse counseling; Z79.82 Long term (current) use of aspirin; Z79.899 Other long term (current) drug therapy; Z20.822 Contact with and (suspected) exposure to COVID-19
CPT/HCPCS: 0241U; 36415; 71046; 80048; 80053; 80061; 81003; 82248; 83735; 84484; 85025; 85610; 85730; 93005; 93306; 99285; J1644

== ENCOUNTER → 2023-07-25 14:27 | Outpatient (BNV) | payer MEDICARE, SELFPAY | PROVIDERS: PCP Internal Medicine; Visit Provider Internal Medicine Cardiovascular Disease | DX: R94.31 Abnormal electrocardiogram [ECG] [EKG] (principal) | CPT/HCPCS: 93010 ==

== ENCOUNTER 2023-07-25 19:06 | Outpatient (BNV) | payer MEDICARE, SELFPAY | END 2023-07-26 07:00 | PROVIDERS: Admitting Provider Physician Assistant; Emergency Provider Emergency Medicine Emergency Medical Services; PCP Internal Medicine; Visit Provider Internal Medicine Cardiovascular Disease | DX: I21.4 Non-ST elevation (NSTEMI) myocardial infarction (principal) | CPT/HCPCS: 93306 ==

== ENCOUNTER → 2023-07-25 19:06 | Outpatient (BNV) | payer MEDICARE, SELFPAY | PROVIDERS: Admitting Provider Physician Assistant; Emergency Provider Emergency Medicine Emergency Medical Services; PCP Internal Medicine; Visit Provider Internal Medicine Cardiovascular Disease | DX: I21.4 Non-ST elevation (NSTEMI) myocardial infarction (principal) | CPT/HCPCS: 99223 ==

== ENCOUNTER → 2023-07-25 19:06 | Outpatient (BNV) | payer MEDICARE, SELFPAY | PROVIDERS: Admitting Provider Physician Assistant; Emergency Provider Emergency Medicine Emergency Medical Services; PCP Internal Medicine; Visit Provider Physician Assistant | DX: I21.4 Non-ST elevation (NSTEMI) myocardial infarction (principal) | CPT/HCPCS: 99223; 99239 ==

== ENCOUNTER → 2023-07-27 23:59 | Outpatient (BNV) | payer MEDICARE, SELFPAY | PROVIDERS: PCP Internal Medicine; Visit Provider Internal Medicine Cardiovascular Disease | DX: I21.4 Non-ST elevation (NSTEMI) myocardial infarction (principal) | CPT/HCPCS: 92928; 92973; 92978; 93458; 99152 ==

== ENCOUNTER 2023-08-09 13:45 | Outpatient (AMB) | payer BC, SELFPAY ==
[2023-08-09 13:47] VITALS: BP 130/62; PULSE 62; BMI 20.6
--- NOTE | 2023-08-09 13:47 | A.OFFVIS_ITS ---
Intake Vital Signs 08/09/23 13:47 Height 5 ft 9 in Weight 139 lb 12.369 oz BMI 20.6 BP 130/62 Blood Pressure Location Lt brachial Position Sitting Pulse 62 Intake Visit Reasons: fu [facility] card cath/ (KM) Intake Note: FOLLOW UP CARD CATH PT FEELS GOOD Allergies lisinopril [Lisinopril] Allergy (Unknown, Verified 12/25/20 11:31) UNKNOWN HPI HPI Comments History of Present Illness Details 73-year-old male presents today for a fo llow-up after cardiac cathertiz ation after an NSTEMI. He had stent placement in the proximal RCA. He denies chest pains or shortness of breath. He did quit smoking and is using nicotine patches. [place] [facility] [place] pains and was noted to be having an acute AK. [facility] Medical History (Updated 08/11/23 @ 07:41 by Imani Vear NP) Smoker HTN (hypertension) Family History (Updated 12/25/20 @ 11:39 by Isidro Santana) Father Lung cancer Social History (Updated 12/25/20 @ 11:39 by Isidro Santana) Household Members: Significant Other Housing: House Patient Tobacco Use Status: Current everyday Tobacco user Tobacco use type: Cigarette e-Cigarette/Vaping Use: Currently Using Substance Use Type: Marijuana Advance Directives Date on File: 07/25/23 service: Yes Current occupational status: retired Current occupation: rt handed Review of Systems Const Denies weakness ENT Denies dizziness Card Denies chest pain, Denies chest pain with activity, Denies syncope, Denies rapid heart rate, Denies pedal edema, Denies edema, Denies leg edema, Denies lightheadedness, Denies palpitations, Denies dyspnea, Denies dyspnea on exertion and Denies orthopnea Resp Denies cough, Denies dyspnea and Denies dyspnea on exertion GI Denies hematochezia and Denies change in stool character Musc Denies abnormal gait, Denies muscle cramps, Denies muscle weakness, Denies numbness, Denies radiating pain into limb and Denies tingling Neuro Denies abnormal gait, Denies dizziness, Denies syncope, Denies numbness, Denies tingling and Denies weakness Endo Denies palpitations Physical Exam Vital Signs: Last Vital Signs Pulse 62 08/09/23 13:47 BP 130/62 08/09/23 13:47 BMI result Body Mass Index 20.6 Assessment & Plan Assessment & Plan (1) Acute non-ST elevation myocardial infarction (NSTEMI): Comment: 07/27/[address] Kurtz LMCA: Mild disease left main LADL mild luminal irregularities (<30%) LCx: Minimal luminal irregularities RCA: Prox RCA mid subsection 99% stenosis PCI to RCA with SHAUN Code(s): I21.4 - Non-ST elevation (NSTEMI) myocardial infarction Plan Cardiac rehab ordered. ASA 81mg indefinitely. Ticagrelor 90mg uninterrupted for 12 months. Continue complete smoking cessation. He is getting a lipid panel done for Dr Quintero in 6 weeks. last LDL was 54 on 07/25/23. Educated on the importancce of Statin medications for post AK. Patient declines despite education due to wanting to wait for lipid panel. Patient was not started on a Beta Hemanth due to bradycardia. Lisinopril allergy noted. Orders: Orders CA echo limited 08/09/23 I21.4 - Non-ST elevation (NSTEMI) myocardial infarction Coding Level of Care Code Est Pt Level 3 (67869) Diagnoses Acute non-ST elevation myocardial infarction (NSTEMI) I21.4
== END 2023-08-09 14:40 | disposition home or self-care (01) ==
PROVIDERS: PCP Internal Medicine; Visit Provider Nurse Practitioner
DX: I21.4 Non-ST elevation (NSTEMI) myocardial infarction (principal)
CPT/HCPCS: 99213

== ENCOUNTER → 2023-08-09 13:45 | Outpatient (BNVA) | payer MEDICARE, SELFPAY | PROVIDERS: PCP Internal Medicine; Visit Provider Nurse Practitioner | DX: I21.4 Non-ST elevation (NSTEMI) myocardial infarction (principal); Z79.82 Long term (current) use of aspirin ==

== ENCOUNTER 2023-09-08 15:33 | Emergency (ER) | payer BC, SELFPAY ==
--- NOTE | ~2023-09-08 | XR_ITS ---
EXAMINATION: XR HAND, RIGHT CLINICAL INFORMATION: Right hand laceration with sore COMPARISON: None available. TECHNIQUE: PA, lateral, and oblique views of the right hand. FINDINGS: BONES: Bony structures are intact. There is no focal bone destruction or periosteal reaction seen. JOINTS: Alignment of joints is normal. SOFT TISSUE: Soft tissue is normal. No radiopaque foreign body or abnormal air collection is seen. XR/XR hand RT 2V IMPRESSION: 1. Normal x-rays of right hand. No fracture or dislocation or signs of osteomyelitis are found.
[2023-09-08 15:44] VITALS: BP 139/87; PULSE 69; RESP 20; TEMP 36.6; O2SAT 99; BMI 21.3
--- NOTE | 2023-09-08 15:45 | ED_ITS ---
HPI - General Adult General Chief complaint: Wound/Laceration Stated complaint: rt thumb wound/bleeding Time Seen by Provider: 09/08/23 19:25 Source: patient Mode of arrival: ambulatory Limitations: no limitations History of Present Illness HPI narrative: 73 yo male recent NSTEMI on brilinta s/p stent here with c/o cutting R thumb on chainsaw could not get it to stop bleeding able to bend thumb. No other injuries reported. Tdap unsure. MD complaint: R thumb laceration Onset (ago): hour(s) (few) Location: right and upper extremity (thumb) Radiation: non-radiation Severity: moderate Quality: aching Pain Consistency: intermittent Relieving factors: rest Exacerbating factors: movement Associated symptoms: denies other symptoms Treatments prior to arrival: other (cleaning, bandage) Related Data Home Medications ?Medication ?Instructions ?Recorded ?Confirmed amlodipine 10 mg tablet 10 mg PO DAILY 12/25/20 07/25/23 aspirin 81 mg tablet,delayed 81 mg PO DAILY 12/25/20 07/25/23 release kyzfsmnl-yhp-NV 0.4 mg-calcium 162 1 tab PO DAILY 07/25/23 07/25/23 mg-iron 18 of-gjciakn-ybeiqn tablet ticagrelor 90 mg tablet (Brilinta) 90 mg PO Q12H 08/09/23 Previous Rx's ?Medication ?Instructions ?Recorded cephalexin 500 mg capsule 500 mg PO TID 3 days #9 caps 09/08/23 Allergies Allergy/AdvReac Type Severity Reaction Status Date / Time lisinopril [Lisinopril] Allergy Unknown UNKNOWN Verified 09/08/23 15:46 Review of Systems Review of Systems: Constitutional : No Fever, No Chills, Cardiovascular : No Chest Pain, No SOB Respiratory : No Dyspnea Gastrointestinal : No abdominal pain Musculoskeletal : No Joint Swelling Skin : No rash, positive skin laceration Neuro : No Weakness, No Numbness PMFSH Past Medical History Attestation statement: The following information was validated with the patient. Source: old records reviewed Medical History Smoker HTN (hypertension) Family History Family History (Updated 12/25/20 @ 11:39 by Isidro Santana) Father Lung cancer Social History Social History Household Members: Significant Other Housing: House Patient Tobacco Use Status: Current everyday Tobacco user Tobacco use type: Cigarette e-Cigarette/Vaping Use: Currently Using Substance Use Type: Marijuana Advance Directives Date on File: 07/25/23 service: Yes Current occupational status: retired Current occupation: rt handed Physical Exam ED Vital Signs: Vital Signs - 24 hr 09/08/23 15:44 Temperature 98 F Pulse Rate 69 Respiratory Rate 20 Blood Pressure 139/87 Pulse Oximetry 99 Oxygen Delivery Method Room Air BMI result Body Mass Index 21.3 Appearance: Alert. Oriented X3. No acute distress. Eyes: Pupils equal, round and reactive to light. ENT: Pharynx normal. Neck: Normal inspection. CVS: Pulses normal. Respiratory: No respiratory distress. Abdomen: Soft and nontender. Skin: Skin warm and dry. Normal skin color. Extremities: R thumb on pad macerated superficial 2cm laceration jagged - distal NV intact. Neuro: Oriented X 3. No motor deficit. No sensory deficit. Course Course Course Narrative: RME: 73 yold male presents to ED for right thumb laceration with electrical saw. Patient states bleeding was controlled. Physical exam shows right thumb laceration skin tear. Complete range of motion of thumb. Was sent for x-ray to rule out tuft fracture. Tdap motor Medications Administered Discontinued Medications Generic Name Dose Route Start Last Admin Trade Name Freq PRN Reason Stop Dose Admin Cephalexin HCl 500 mg 09/08/23 19:43 09/08/23 20:19 Cephalexin 500 Mg Capsule PO 09/08/23 19:44 500 mg ONCE ONE Administration Diphtheria/Tetanus/Acell Pertussis 0.5 ml 09/08/23 15:44 09/08/23 20:19 Diphth,Pertus(Acell),Tet Adult 0.5 Ml Syringe IM 09/08/23 15:45 0.5 ml .ONCE ONE Administration Procedures Laceration Laceration 1: Site: upper extremity Side (If applicable): right Size (cm): 2 Description: flap and irregular Depth: simple, single layer Pre-repair: wound explored, irrigated extensively and deep structures intact Skin layer closed with: other (exofin) Medical Decision Making Medical Decision Making MDM Narrative: 73 yo male with PMH of HTN, NSTEMI s/p stent on brilinta here with R thumb jagged laceration he is distal NV intact it is macerated and there is avulsion so I am not sure what I can salvage in terms of sutures will clean well - xray was done already no fracture (low suspicion clinically) will likely glue and start on prophylactic cephalexin Differential Diagnosis Differential Diagnoses: The differential diagnosis associated with the presentation includes laceration Independent Interpretation I performed an independent interpretation of an: Plain X-Ray (no fx) Radiology Impression Discussion of test interpretation with radiology: I have reviewed the radiologist's reading. External Record Review External record reviewed: Inpatient record Prescription Management I considered prescription management with: Antibiotic Discharge Plan Discharge Clinical Impression: Laceration, Avulsion of skin Patient Disposition: Home, Self-Care Instructions: Laceration (ED), Skin Avulsion (ED) Additional Instructions: monitor for increased redness, swelling, pain, yellow drainage wait to get area wet for 5 days unless soiled with dirt will fall off in 5 days on its own Prescriptions: New cephalexin 500 mg capsule 500 mg PO TID 3 Days Qty: 9 0RF No Action rl-mia-QX-Du-Fq-nrxfzez-lutein 0.4-162-18 mg Tablet 1 tab PO DAILY amlodipine 10 mg tablet 10 mg PO DAILY aspirin 81 mg tablet,delayed release (DR/EC) 81 mg PO DAILY Brilinta 90 mg tablet 90 mg PO Q12H Interventions: ED Discharge Assessment Last Done: 09/08/23 20:32 Discharge Date/Time: 09/08/23 20:33 Print Language: [place]i
--- NOTE | 2023-09-08 19:48 | MHC.EDTECH ---
This tech took over care of patient at this time,Soaked patient's right thumb in NS and betadine per request,patient tolerated well.
[2023-09-08 19:52] VITALS: BP 172/95; PULSE 81; RESP 18; TEMP 36.6; O2SAT 97
[2023-09-08] MEDS: cephALEXin 500 MG CAPSULE PO (20:19)
[2023-09-08] MEDS: Diphth,Pertus(ACell),Tet Adult 0.5 ML SYRINGE IM (20:19)
--- NOTE | 2023-09-08 20:27 | PC.NURSE ---
Pt a&o, no sob or chest pain, medicated upon discharged, reviewed discharge instructions with pt. pt verbalized understanding, no sign of distress at discharge, ambulated with steady gait.
[2023-09-08 20:32] VITALS: BP 142/85; PULSE 80; RESP 18; TEMP 36.2; O2SAT 98
== END 2023-09-08 20:33 | disposition home or self-care (01) ==
PROVIDERS: Emergency Provider Emergency Medicine; PCP Internal Medicine
DX: S61.011A Laceration without foreign body of right thumb without damage to nail, initial encounter (principal); S60.311A Abrasion of right thumb, initial encounter; M79.641 Pain in right hand; W29.3XXA Contact with powered garden and outdoor hand tools and machinery, initial encounter; Y93.9 Activity, unspecified; Y92.9 Unspecified place or not applicable; Y99.8 Other external cause status; Z23 Encounter for immunization
CPT/HCPCS: 12041; 73120; 90471; 90715; 99284

== ENCOUNTER → 2023-09-13 13:45 | Outpatient (REF) | payer BC, SELFPAY ==
--- NOTE | 2023-09-13 13:48 | CA_ITS ---
Transthoracic Echocardiogram Patient (Last, First, Middle): Denis Martinez J Gender: Male Date of : 1950 Age: 73 Procedure Date: 09/13/2023 Procedure Type: Transthoracic Echocardiogram Location: OP Height: 175.26 cm Weight: 66.23 kg BSA: 1.81 m2 Heart Rate: bpm BP: 122 / 70 mmHg Pharmacoepidemiologist: PRADEEP Referring MD: Imani Vera [employer] Symptoms: I21.4 - Non-ST elevation (NSTEMI) myocardial infarction Study Quality: Adequate Conclusions: - Normal left ventricular size, thickness, systolic function, and wall motion. The visually estimated ejection fraction is between 55-60%. Diastolic function is indeterminate on the basis of available data. - Normal right ventricular cavity size and systolic function. - Normal global longitudinal strain -18.8%. Findings Left Ventricle Normal left ventricular size, thickness, systolic function, and wall motion. The visually estimated ejection fraction is between 55-60%. Diastolic function is indeterminate on the basis of available data. Right Ventricle Normal right ventricular cavity size and systolic function. Venous The inferior vena cava is normal in size and collapses greater than 50% with inspiration. Pericardium/Pleural There is no evidence of pericardial effusion. Prior Study Comparison Changes noted compared to prior study. Normal LVEF, no definite regional wall motion abnormailites. Measurements 2D Linear Measurements IVSd: 0.73 0.6-0.9/0.6-1.0 cm LVIDd: 5.27 3.9-5.3/4.2-5.9 cm LVIDd Index: 2.91 2.4-3.2/2.2-3.1 cm/m2 LVIDs: 3.51 2.0-3.6 cm LVPWd: 0.92 0.7-1.1 cm LV Mass: 192.26 67-162/88-224 g LV Mass Index: 106.22 43-95/49-115 g/m2 LVOT Diam: 2.00 3.0+(-)1.3 cm 2D Systolic Function EF 4C: 56.70 >55% EF 2C: 59.70 >55% EF BiP: 57.30 >55% Mitral Valve MV Pk E: 0.75 MV PK A: 0.88 MV Decel Time: 294.00 E/A: 0.90 E'Lateral: 8.05 E'Medial: 6.64 E/E' Med: 11.30 E/E' Lat: 9.30 PHT: 86.00 MVA PHT: 2.56 Decel [place]: 2.55 LVOT LVOT Pk Jayesh: 1.32 LVOT Mn Jayesh: 0.76 LVOT VTI: 0.26 LVOT Pk Grad: 7.00 LVOT Mn Grad: 3.00 LVOT Diam: 2.00 LVOT Area: 3.14 Diastolic Function MV Pk E: 0.75 MV Pk A: 0.88 E/A: 0.90 E'Medial: 6.64 E/E' Med: 11.30 E' Laterial: 8.05 E/E' Lat: 9.30 Tricuspid Valve RA Press: 3.00 Updated in Other Vendor System with Status of Final Jake Kurtz MD electronically signed on 09/13/2023 9:30:00 PM with status of Final
== END ==
LOC: HO.CARD 13:45
PROVIDERS: PCP Internal Medicine; Visit Provider Internal Medicine
DX: I21.4 Non-ST elevation (NSTEMI) myocardial infarction (principal)
CPT/HCPCS: 93308; 93356

== ENCOUNTER → 2023-09-13 13:48 | Outpatient (BNV) | payer BC, SELFPAY | PROVIDERS: PCP Internal Medicine; Visit Provider Internal Medicine Cardiovascular Disease | DX: I21.4 Non-ST elevation (NSTEMI) myocardial infarction (principal) | CPT/HCPCS: 93308; 93356 ==

== ENCOUNTER 2023-09-22 08:15 | Outpatient (REF) | payer BC, SELFPAY ==
[2023-09-22 08:31] LABS: MANUAL DIFF FLAG NO
[2023-09-22 09:16] LABS: Basophils Absolute Auto 0.1 X10*3/uL (0.0-0.2); Basophils Percent Auto 1.2 % (0-2); Eosinophils Absolute Auto 0.7 X10*3/uL (0.0-0.4); Eosinophils Percent Auto 11.3 % (0-4); Hematocrit 36.3 % (42.0-52.0); Hemoglobin 11.8 g/dl (14.0-18.0); Imm Gran Abs Auto 0.03 X10*3/uL (0.00-0.03); Imm Gran Pct Auto 0.5 % (0.0-0.4); Lymphocytes Absolute Auto 1.9 X10*3/uL (1.2-4.9); Lymphocytes Percent Auto 29.7 % (20-40); Mean Corpuscular HGB Conc 32.5 g/dl (31.0-36.0); Mean Corpuscular Hemoglobin 30.7 pg (27.0-33.0); Mean Corpuscular Volume 94.5 fL (80.0-98.0); Mean Platelet Volume 10.5 fL (9.4-12.4); Monocytes Absolute Auto 1.1 X10*3/uL (0.1-1.2); Monocytes Percent Auto 16.8 % (2-11); Neutrophils Absolute Auto 2.6 x10*3/uL (2.0-8.3); Neutrophils Percent Auto 40.5 % (45-73); Platelet Count 266 X10*3/uL (160-400); Red Blood Count 3.84 X10*6/uL (4.60-5.80); White Blood Count 6.5 X10*3/uL (4.8-10.8)
[2023-09-22 10:04] LABS: Alanine Aminotransferase 21 U/L (0-40); Albumin Level 3.8 g/dL (3.5-5.0); Alkaline Phosphatase 56 U/L (39-117); Anion Gap 11 (12-20); Aspartate Amino Transferase 20 U/L (5-37); Bilirubin Total 0.5 mg/dL (0.0-1.0); Blood Urea Nitrogen 27 mg/dL (9-16); Carbon Dioxide 25 mmol/L (22-29); Chloride 110 mmol/L (96-108); Cholesterol 154 mg/dL (<200); Estimated Glomerular Filt Rate > 60; Glucose Fasting 97 mg/dL (60-99); HDL Cholesterol 73 mg/dL (>40); LDL Cholesterol Calculated 71 mg/dL (<100); Potassium 4.3 mmol/L (3.3-5.1); Sodium 142 mmol/L (135-145); Total Protein 6.2 g/dL (6.5-8.0); Triglycerides 54 mg/dL (<150)
== END 2023-09-22 08:16 | disposition home or self-care (01) ==
LOC: HO.LAB 08:15
PROVIDERS: PCP Internal Medicine; Visit Provider Internal Medicine
DX: I25.10 Atherosclerotic heart disease of native coronary artery without angina pectoris (principal)
CPT/HCPCS: 36415; 80053; 80061; 85025

== ENCOUNTER → 2023-10-03 13:27 | Outpatient (REF) | payer BC, SELFPAY ==
--- NOTE | 2023-10-03 13:35 | HM_ITS ---
Conclusion : 1) Basic rhythm NSR with no oauses. 2) Frequent sinus bradycardia 42% of time HR < 60 bpm with no pauses. 3) Frequent PVCs, 3.2% of total beats 4) Frequent PACs, 5.2% of total beats with short runs of SVEs, longest 17 beats 5) Patient reported 2 events correlating with PVCs MTDD
== END ==
LOC: HO.CARD 13:27
PROVIDERS: Visit Provider Nurse Practitioner
DX: I49.3 Ventricular premature depolarization (principal)
CPT/HCPCS: 93242

== ENCOUNTER → 2023-10-03 13:35 | Outpatient (BNV) | payer BC, SELFPAY | PROVIDERS: Visit Provider Internal Medicine Cardiovascular Disease | DX: R00.1 Bradycardia, unspecified (principal) | CPT/HCPCS: 93244 ==

== ENCOUNTER 2023-11-10 12:45 | Outpatient (AMB) | payer BC, SELFPAY ==
[2023-11-10 12:52] VITALS: BP 122/68; PULSE 51; BMI 21.5
--- NOTE | 2023-11-10 12:52 | MHC.OFFVIS ---
Vital Signs 11/10/23 12:52 Height 5 ft 9 in Weight 145 lb 8.081 oz BMI 21.5 BP 122/68 Blood Pressure Location Lt brachial Position Sitting Pulse 51 Pulse Source Pulse Oximeter Intake Visit Reasons: 3 mth f/up Allergies lisinopril [Lisinopril] Allergy (Unknown, Verified 09/08/23 15:46) UNKNOWN Medication List - Last Reconciled 11/10/23 by Imani Vera NP amlodipine 10 mg PO DAILY aspirin 81 mg PO DAILY cephalexin 500 mg PO TID 3 days metoprolol tartrate 50 mg PO BID 90 days wo-nfd-HB-Rv-Hj-jsakvbe-lutein 0.4-162-18 mg 1 tab PO DAILY ticagrelor (Brilinta) 90 mg PO Q12H HPI Comments Details: 73-year-old male presents today for a follow-up. He had a repeat echcoardiogram and holter monitor after having a stent placed. During cardiac rehab he was having frequent PVCs. A holter was performed which revealed frequent PVCs. He is tolerating the increase in metorpolol. He has not returned to smoking. Recently got ill from COVID - feeling back to baseline. He is also exercising at home [facility] Medical History (Updated 11/14/23 @ 13:51 by Imani Vera NP) Frequent PVCs Smoker HTN (hypertension) Family History Father Lung cancer Social History Household Members: Significant Other Housing: House Patient Tobacco Use Status: Current everyday Tobacco user Tobacco use type: Cigarette e-Cigarette/Vaping Use: Currently Using Substance Use Type: Marijuana Advance Directives Date on File: 07/25/23 service: Yes Current occupational status: retired Current occupation: rt handed Review of Systems Const Denies weakness ENT Denies dizziness Card Denies chest pain, Denies chest pain with activity, Denies syncope, Denies rapid heart rate, Denies pedal edema, Denies edema, Denies leg edema, Denies lightheadedness, Denies palpitations, Denies dyspnea, Denies dyspnea on exertion and Denies orthopnea Resp Denies cough, Denies dyspnea and Denies dyspnea on exertion GI Denies hematochezia and Denies change in stool character Musc Denies abnormal gait, Denies muscle cramps, Denies muscle weakness, Denies numbness, Denies radiating pain into limb and Denies tingling Neuro Denies abnormal gait, Denies dizziness, Denies syncope, Denies numbness, Denies tingling and Denies weakness Endo Denies palpitations Physical Exam Vital Signs: Last Vital Signs Pulse 51 11/10/23 12:52 BP 122/68 11/10/23 12:52 BMI result Body Mass Index 21.5 Const General: healthy appearing and no acute distress Orientation/consciousness: patient oriented x3 HEENT Head: Yes normal to inspection Eyes General: appearance normal, both eyes and all related structures Neck Neck: Yes normal visual inspection Chest Chest palpation & inspection: normal inspection of the chest Resp Effort & Inspection: normal respiratory effort Auscultation: clear to auscultation bilaterally Cardio Jugular venous distension: no JVD Palpation: normal PMI Rate: regular rate Rhythm: regular rhythm Heart sounds: S1 normal heart sound present, S2 normal heart sound present, no click, no gallops, no murmurs and no rubs GI Inspection: Yes normal to inspection Palpation (GI): Soft to palpation Skin General skin exam: no rashes or lesions noted Neuro General: patient oriented x3 Extrem General: Yes normal to inspection Psych Appearance: grossly normal Assessment & Plan Assessment & Plan (1) Acute non-ST elevation myocardial infarction (NSTEMI): Comment: 07/27/[address] Kurtz LMCA: Mild disease left main LADL mild luminal irregularities (<30%) LCx: Minimal luminal irregularities RCA: Prox RCA mid subsection 99% stenosis PCI to RCA with SHAUN Code(s): I21.4 - Non-ST elevation (NSTEMI) myocardial infarction Category: Medical (2) Frequent PVCs: Code(s): I49.3 - Ventricular premature depolarization Category: Medical Plan: Seen at cardiac rehab and via holter. [place] of 5.2% Plan Cardiac rehab ordered - continue. ASA 81mg indefinitely. Ticagrelor 90mg uninterrupted for 12 months. . Congratulated on complete smoking cessation. Patients LDL is 71 09/22/23. Patient was not started on a Beta Hemanth due to bradycardia. Lisinopril allergy noted. Coding Level of Care Code Est Pt Level 3 (40661) Diagnoses Acute non-ST elevation myocardial infarction (NSTEMI) I21.4 Frequent PVCs I49.3
== END 2023-11-10 13:16 | disposition home or self-care (01) ==
PROVIDERS: PCP Internal Medicine; Visit Provider Nurse Practitioner
DX: I21.4 Non-ST elevation (NSTEMI) myocardial infarction (principal); I49.3 Ventricular premature depolarization
CPT/HCPCS: 99213

== ENCOUNTER → 2023-11-10 12:45 | Outpatient (BNVA) | payer BC, SELFPAY | PROVIDERS: PCP Internal Medicine; Visit Provider Nurse Practitioner | DX: I49.3 Ventricular premature depolarization (principal); I25.2 Old myocardial infarction; Z79.82 Long term (current) use of aspirin ==

== ENCOUNTER 2023-11-28 11:30 | Outpatient (RCR) | payer BC, SELFPAY | END 2023-12-15 13:49 | disposition home or self-care (01) | LOC: HO.CR 11:30 | PROVIDERS: PCP Internal Medicine; Visit Provider Internal Medicine Cardiovascular Disease | DX: I21.4 Non-ST elevation (NSTEMI) myocardial infarction (principal) | CPT/HCPCS: 93798 ==

== ENCOUNTER 2024-02-29 10:15 | Outpatient (AMB) | payer BC, SELFPAY ==
--- NOTE | 2024-02-29 10:29 | A.OFFVIS_ITS ---
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 Accompanied by: Self / Same As Patient Allergies lisinopril [Lisinopril] Allergy (Unknown, Verified 09/08/23 15:46) UNKNOWN Medication List - Last Reconciled 02/29/24 by Jake Kurtz MD amlodipine 10 mg PO DAILY aspirin 81 mg PO DAILY atenolol 25 mg PO DAILY ad-jwv-TG-Hy-Jd-qgxbtge-lutein 0.4-162-18 mg 1 tab PO DAILY ticagrelor (Brilinta) 90 mg PO Q12H HPI Comments Details: [age] year gentleman who presented with acute coronary syndrome and was transferred to [facility] where cardiac catheterization showed subtotal right coronary artery occlusion which was treated with drug-eluting stent. Subsequently his echocardiography has shown normal LVEF without any wall motion abnormalities. He has been on aspirin and Brilinta. He had some premature ventricular complexes during cardiac rehabilitation and was started on metoprolol which was titrated to 50 mg twice a day but he had significant fatigue and subsequently was changed to atenolol 25 mg daily. He returns for follow-up today. He has been feeling cold it and this is something unusual for him. He is bradycardic with heart rate 41 beats per minute on EKG. He has some dizziness off and on when he stands up. No chest discomfort. No shortness of breath. He has been physically active since the ACS episode. [facility] Medical History (Updated 02/29/24 @ 17:35 by Jake Kurtz MD) Frequent PVCs Smoker HTN (hypertension) Family History Father Lung cancer Social History Household Members: Significant Other Housing: House Patient Tobacco Use Status: Current everyday Tobacco user Tobacco use type: Cigarette e-Cigarette/Vaping Use: Currently Using Substance Use Type: Marijuana Advance Directives Date on File: 07/25/23 service: Yes Current occupational status: retired Current occupation: rt handed Review of Systems Const Denies chills, Denies fatigue, Denies fever(s), Denies frequent falls, Denies weakness, Denies weight gain and Denies weight loss ENT Denies dizziness Card Denies chest pain, Denies leg edema, Denies lightheadedness, Denies palpitations, Denies dyspnea and Denies dyspnea on exertion Resp Denies cough, Denies dyspnea and Denies dyspnea on exertion GI Denies hematochezia Musc Denies abnormal gait, Denies muscle weakness, Denies numbness, Denies radiating pain into limb and Denies tingling Neuro Denies abnormal gait, Denies dizziness, Denies frequent falls, Denies numbness, Denies tingling and Denies weakness Endo Denies fatigue and Denies palpitations Physical Exam Vital Signs: Last Vital Signs Pulse 41 L 02/29/24 10:30 BP 120/70 02/29/24 10:30 BMI result Body Mass Index 22.2 GENERAL APPEARANCE: in no acute distress, pleasant. NECK: no carotid bruit, no jugular venous distention. SKIN: no suspicious lesions, warm and dry. HEART: no murmurs, regular rate and rhythm. Bradycardic. LUNGS: clear to auscultation bilaterally. ABDOMEN: soft, nontender. EXTREMITIES: no edema. PERIPHERAL PULSES: equal. NEUROLOGIC: No gross deficits, AAO X 3 Office Procedures EKG Details: Marked sinus bradycardia 41 beats per minute, normal axis, premature atrial complexes, QTC 412 milliseconds. 52162-[id number], Complete Assessment & Plan Assessment & Plan (1) Frequent PVCs: Code(s): I49.3 - Ventricular premature depolarization Category: Medical (2) Stable angina: Code(s): I20.89 - Other forms of angina pectoris Category: Medical (3) Sinus bradycardia: Code(s): R00.1 - Bradycardia, unspecified Category: Medical Plan Pleasant 73 year gentleman who is here for follow-up. He has RCA PCI in the setting of acute coronary syndrome. He has been on aspirin and Brilinta and he has been doing well. He had some PVCs on started on metoprolol followed by atenolol. He is bradycardic currently and has been experiencing some dizzy spells off and on. Stop the atenolol. We discussed about PVCs which were noticed during exercise. He did not have any nonsustained VT or concerning rhythms. I have explained to him that given bradycardia currently atenolol is not the best drug to use too. After discussion we have decided to stop the atenolol and monitor him closely. I will see him back in few months and at that time we will consider doing a 3 day Holter monitor. Thank you for allowing me to participate in the care of your patient. Please feel free to contact me if you have any questions. Coding Level of Care Code Est Pt Level 4 (79220) Diagnoses Frequent PVCs I49.3 Stable angina I20.89 Sinus bradycardia R00.1 CPT Codes EKG - CPT: 85174-[id number], Complete ([id number])
[2024-02-29 10:30] VITALS: BP 120/70; PULSE 41; BMI 22.2
== END 2024-02-29 11:01 | disposition home or self-care (01) ==
LOC: HO.HCS 10:15
PROVIDERS: PCP Internal Medicine; Visit Provider Internal Medicine Cardiovascular Disease
DX: I49.3 Ventricular premature depolarization (principal); I20.89 Other forms of angina pectoris; R00.1 Bradycardia, unspecified
CPT/HCPCS: 93010; 99214

== ENCOUNTER → 2024-02-29 10:15 | Outpatient (BNVA) | payer BC, SELFPAY | PROVIDERS: PCP Internal Medicine; Visit Provider Internal Medicine Cardiovascular Disease | DX: I49.3 Ventricular premature depolarization (principal); I20.89 Other forms of angina pectoris; R00.1 Bradycardia, unspecified | CPT/HCPCS: 93005 ==

== ENCOUNTER 2024-03-26 13:59 | Outpatient (REF) | payer BC, SELFPAY ==
[2024-03-26 14:19] LABS: MANUAL DIFF FLAG NO
[2024-03-26 14:40] LABS: Basophils Absolute Auto 0.1 X10*3/uL (0.0-0.2); Basophils Percent Auto 1.1 % (0-2); Eosinophils Absolute Auto 0.3 X10*3/uL (0.0-0.4); Eosinophils Percent Auto 4.6 % (0-4); Hematocrit 38.6 % (42.0-52.0); Hemoglobin 12.6 g/dl (14.0-18.0); Imm Gran Abs Auto 0.06 X10*3/uL (0.00-0.03); Imm Gran Pct Auto 0.8 % (0.0-0.4); Lymphocytes Absolute Auto 1.8 X10*3/uL (1.2-4.9); Lymphocytes Percent Auto 24.7 % (20-40); Mean Corpuscular HGB Conc 32.6 g/dl (31.0-36.0); Mean Corpuscular Hemoglobin 30.7 pg (27.0-33.0); Mean Corpuscular Volume 93.9 fL (80.0-98.0); Monocytes Absolute Auto 1.2 X10*3/uL (0.1-1.2); Monocytes Percent Auto 15.8 % (2-11); Neutrophils Absolute Auto 3.9 x10*3/uL (2.0-8.3); Platelet Count 310 X10*3/uL (160-400); Red Blood Count 4.11 X10*6/uL (4.60-5.80); Red Cell Distribution Width 14.1 % (11.0-16.0); White Blood Count 7.3 X10*3/uL (4.8-10.8)
[2024-03-26 15:33] LABS: Alanine Aminotransferase 23 U/L (0-40); Albumin Level 4.2 g/dL (3.5-5.0); Alkaline Phosphatase 59 U/L (39-117); Anion Gap 14 (12-20); Aspartate Amino Transferase 34 U/L (5-37); Bilirubin Total 0.5 mg/dL (0.0-1.0); Blood Urea Nitrogen 23 mg/dL (9-16); Calcium 9.2 mg/dL (8.4-10.2); Carbon Dioxide 24 mmol/L (22-29); Chloride 104 mmol/L (96-108); Estimated Glomerular Filt Rate 56; Glucose Random 106 mg/dL (60-115); Iron 207 mcg/dL (45-160); Percent Iron Saturation 68 % (15-50); Potassium 4.3 mmol/L (3.3-5.1); Sodium 138 mmol/L (135-145); Total Iron Binding Capacity 304 mcg/dL (228-428); Total Protein 6.7 g/dL (6.5-8.0); Unsaturated Iron Binding 97 ug/dL
[2024-03-26 15:53] LABS: Prostate Specific Antigen 0.89 ng/mL (<0.05-4.0)
== END 2024-03-26 14:00 | disposition home or self-care (01) ==
LOC: HO.LAB 13:59
PROVIDERS: PCP Internal Medicine; Visit Provider Internal Medicine
DX: I10 Essential (primary) hypertension (principal); D64.9 Anemia, unspecified; N40.0 Benign prostatic hyperplasia without lower urinary tract symptoms; I25.10 Atherosclerotic heart disease of native coronary artery without angina pectoris; Z12.5 Encounter for screening for malignant neoplasm of prostate
CPT/HCPCS: 36415; 80053; 83540; 84153; 85025

== ENCOUNTER 2024-07-02 12:16 | Outpatient (AMB) | payer BC, SELFPAY ==
--- NOTE | 2024-07-02 12:54 | MHC.OFFVIS ---
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 where cardiac catheterization showed subtotal right coronary artery occlusion which was treated with drug-eluting stent. Subsequently his echocardiography has shown normal LVEF without any wall motion abnormalities. He has been on aspirin and Brilinta. He had some premature ventricular complexes during cardiac rehabilitation and was started on metoprolol which was titrated to 50 mg twice a day but he had significant fatigue and subsequently was changed to atenolol 25 mg daily. He returns for follow-up today. He has been feeling cold it and this is something unusual for him. He is bradycardic with heart rate 41 beats per minute on EKG. He has some dizziness off and on when he stands up. No chest discomfort. No shortness of breath. He has been physically active since the ACS episode. 07/02/2024: He is here for follow-up. He is denying any chest discomfort shortness of breath. He has been exercising regularly without any exertional symptoms. Previously was getting dizzy and had bradycardia and atenolol was stopped. He is saying that since stopping atenolol he has done significantly better and feels more energetic. He is taking aspirin and Brilinta and we discussed that as he runs out of Brilinta he can stop taking it and can stay on aspirin monotherapy. He currently is not on statins. [facility]LY [facility] Medical History (Updated 02/29/24 @ 17:35 by Jake Kurtz MD) Frequent PVCs Smoker HTN (hypertension) Family History Father Lung cancer Social History Household Members: Significant Other Housing: House Patient Tobacco Use Status: Current everyday Tobacco user Tobacco use type: Cigarette e-Cigarette/Vaping Use: Currently Using Substance Use Type: Marijuana Advance Directives Date on File: 07/25/23 service: Yes Current occupational status: retired Current occupation: rt handed Review of Systems Const Denies chills, Denies fatigue, Denies fever(s), Denies frequent falls, Denies weakness, Denies weight gain and Denies weight loss ENT Denies dizziness Card Denies chest pain, Denies leg edema, Denies lightheadedness, Denies palpitations, Denies dyspnea and Denies dyspnea on exertion Resp Denies cough, Denies dyspnea and Denies dyspnea on exertion GI Denies hematochezia Musc Denies abnormal gait, Denies muscle weakness, Denies numbness, Denies radiating pain into limb and Denies tingling Neuro Denies abnormal gait, Denies dizziness, Denies frequent falls, Denies numbness, Denies tingling and Denies weakness Endo Denies fatigue and Denies palpitations Physical Exam Vital Signs: Last Vital Signs Pulse 71 07/02/24 12:55 BP 130/64 07/02/24 12:55 BMI result Body Mass Index 24.7 GENERAL APPEARANCE: in no acute distress, pleasant. NECK: no carotid bruit, no jugular venous distention. SKIN: no suspicious lesions, warm and dry. HEART: no murmurs, regular rate and rhythm. LUNGS: clear to auscultation bilaterally. ABDOMEN: soft, nontender. EXTREMITIES: no edema. PERIPHERAL PULSES: equal. NEUROLOGIC: No gross deficits, AAO X 3 Assessment & Plan Assessment & Plan (1) Stable angina: Code(s): I20.89 - Other forms of angina pectoris Category: Medical Plan Pleasant 74 year gentleman who is here for follow-up. He has known history of coronary artery disease with previous acute coronary syndrome and underwent PCI to right coronary artery. He had some PVCs post procedure and was on beta-venu but developed significant fatigue and dizziness. He was on atenolol which was stopped. Since then he has done well and has no significant symptoms. He is exercising regularly. He will continue aspirin and Brilinta for another 2 months and after that Brilinta will be stopped. He will continue aspirin lifelong and he understands that. His LDL cholesterol is 71. I am starting him on atorvastatin 20 mg daily. Follow-up with us in 6 months. Thank you for allowing me to participate in the care of your patient. Please feel free to contact me if you have any questions. Medications: New atorvastatin 20 mg PO BEDTIME 60 tabs 3RF I20.89 - Other forms of angina pectoris Coding Level of Care Code Est Pt Level 4 (05177) Diagnoses Stable angina I20.89
[2024-07-02 12:55] VITALS: BP 130/64; PULSE 71; BMI 24.7
== END 2024-07-02 13:12 | disposition home or self-care (01) ==
PROVIDERS: PCP Internal Medicine; Visit Provider Internal Medicine Cardiovascular Disease
DX: I20.89 Other forms of angina pectoris (principal)
CPT/HCPCS: 99214

== ENCOUNTER 2024-09-03 12:45 | Outpatient (AMB) | payer BC, SELFPAY ==
[2024-09-03 12:52] VITALS: BP 132/80; PULSE 69; TEMP 36.6; O2SAT 98; BMI 24.4
--- NOTE | 2024-09-03 12:52 | A.OFFPC_ITS ---
Vital Signs 09/03/24 12:52 Height 5 ft 9 in Weight 165 lb BMI 24.4 BP 132/80 Blood Pressure Location Lt brachial Position Sitting Pulse 69 Pulse Source Pulse Oximeter Temp 97.8 F Temp Source Axillary Pulse Oximetry (%) 98 Oxygen Delivery Method Room Air Intake Visit Reasons: Routine - see comments Geochemical Laboratory Technician Required: No Accompanied by: Self / Same As Patient Allergies lisinopril [Lisinopril] Allergy (Unknown, Verified 09/03/24 13:24) UNKNOWN Medication List - Last Reconciled 09/03/24 by Carlos Chairez MD amlodipine 10 mg PO DAILY aspirin 81 mg PO DAILY atorvastatin 20 mg PO BEDTIME [id number]-[id number]-lutein 0.4-162-18 mg 1 tab PO DAILY ticagrelor (Brilinta) 90 mg PO Q12H Tobacco use date assessed: 09/03/24 Fall risk assessment: No Falls in past year Last assessed Fall Risk: 09/03/24 Dental Screening Dental Screen Date: 09/03/24 Did you have a dental visit in the last 12 months?: Yes Did you have a dental problem in the last 6 months where you did not have access to dental care?: No [facility] Medical History (Updated 09/03/24 @ 13:25 by Carlos Chairez MD) Acute non-ST elevation myocardial infarction (NSTEMI) Frequent PVCs Smoker HTN (hypertension) Family History Father Lung cancer Mother No problems noted. Social History Household Members: Significant Other Housing: House Patient Tobacco Use Status: Former Tobacco user Tobacco use type: Cigarette e-Cigarette/Vaping Use: Former Use Substance Use Type: Marijuana Advance Directives Date on File: 07/25/23 service: Yes Current occupational status: retired Current occupation: rt handed Cognitive needs: No Hearing needs: No Vision needs: Yes (reading glasses) Questionnaire PHQ-9 Over the last 2 weeks, how often have you been bothered by any of the following problems? 1. Little interest or pleasure in doing things: not at all 2. Feeling down, depressed, or hopeless: not at all 3. Trouble falling or staying asleep, or sleeping too much: not at all 4. Feeling tired or having little energy: not at all 5. Poor appetite or overeating: not at all 6. Feeling bad about yourself - or that you are a failure or have let yourself or your family down: not at all 7. Trouble concentrating on things, such as reading the newspaper or watching television: not at all 8. Moving or speaking so slowly that other people could have noticed. Or the opposite - being so fidgety or restless that you have been moving around a lot more than usual: not at all 9. Thoughts that you would be better off or of hurting yourself in some way: not at all Total score: 0 Depression Screening Interpretation: Negative Depression Screening Done: Yes Source: Developed by Drs. Gary Oro, Shawanda Merino, Israel Cedillo and colleagues, with an educational nona from [employer]. Thrive Questionnaire Date Thrive assessed: 09/03/24 I am a: Patient Within the past 12 months, did the food you bought not last and you didn't have the money to get more?: Never true Within the past 12 months, did you worry whether your food would run out before you got money to buy more?: Never true Do you have trouble paying for medicines?: No Do you have trouble getting transportation to medical appointments?: No Do you have trouble paying your heating and electricity bill?: No Do you have trouble taking care of your child, family member or friend?: No Do you have trouble with day-to-day activities such as bathing, preparing meals, shopping, managing finances, etc.?: No Are you currently unemployed and looking for a job?: No Are you interested in more education?: No Currently or been in a relationship where the following occur: No concerns reported THRIVE Score: 0 AUDIT C Alcohol Use Questionnaire (AUDIT-C) 1. How often do you have a drink containing alcohol?: Monthly or less 2. How many drinks containing alcohol do you have on a typical day when you are drinking?: 1 or 2 3. How often do you have six or more drinks on one occasion?: Less than monthly Total Score: 2 OTILIO-7 AMB Questionnaire OTILIO-7 Date OTILIO - 7 assessed: 09/03/24 Feeling nervous, anxious, or on edge: 0 = Not at all Not being able to stop or control worryin = Not at all Worrying too much about different things: 0 = Not at all Trouble relaxin = Not at all Being so restless that it is hard to sit still: 0 = Not at all Becoming easily annoyed or irritable: 0 = Not at all Feeling afraid as if something awful might happen: 0 = Not at all Total OTILIO-7 score (0-4 normal; 5-9 mild; 10-14 moderate; 15-21 severe): 0 Source: Developed by Drs. Gary Oro, Shawanda Merino, Israel Cedillo and colleagues, with an educational nona from [employer]. Physical exam (Primary Care) Vital Signs: Last Vital Signs Temp 97.8 F 09/03/24 12:52 Pulse 69 09/03/24 12:52 BP 132/80 09/03/24 12:52 Pulse Ox 98 09/03/24 12:52 Oxygen Delivery Method Room Air 09/03/24 12:52 Care Plan Goal for BP management: Blood pressure is in range. Continue current medications. BMI result Body Mass Index 24.4 Tobacco/Smoking Status: Tobacco use Status Tobacco use date assessed 09/03/24 09/03/24 12:55 Patient Tobacco Use Status Former Tobacco user 09/03/24 13:12 Tobacco use type Cigarette 09/03/24 12:55 e-Cigarette/Vaping Use Former Use 09/03/24 13:12 PHQ-9: PHQ-9 Score PHQ-9: Total score 0 09/03/24 13:12 Depression Screening Interpretation: Negative Thrive Assessment: Date of Thrive Assessment Date Thrive assessed 09/03/24 09/03/24 12:55 Currently or been in a relationship where the following occur: No concerns reported Advance Care Planning discussion: Exists, not on file Date of discussion: 09/03/24 Who was present: Patient Forms completed: Health Care Proxy Coding Level of Care Code New Pt Level 4 (35136) Complex EM visit Add On G2211 Diagnoses HTN (hypertension) I10 Acute non-ST elevation myocardial infarction (NSTEMI) I21.4 Additional Codes Vital Signs *Quality* - Advance Care Planning discussion: Exists, not on file ([id number]) Assessment & Plan Assessment & Plan (1) HTN (hypertension): Code(s): I10 - Essential (primary) hypertension Category: Medical Plan: Blood pressure is stable. Amlodipine prescription was refilled. Counseling on the importance of diet and exercise done. (2) Acute non-ST elevation myocardial infarction (NSTEMI): Comment: 07/27/[address] Kurtz LMCA: Mild disease left main LADL mild luminal irregularities (<30%) LCx: Minimal luminal irregularities RCA: Prox RCA mid subsection 99% stenosis PCI to RCA with SHAUN Code(s): I21.4 - Non-ST elevation (NSTEMI) myocardial infarction Category: Medical Plan: Condition is stable. Patient sees a auto electrical technician at [facility]. Continue the Brilinta. Plan History of Present Illness The patient is a 74-year-old male presenting with a follow-up for management of coronary artery disease, hyperlipidemia, and ongoing treatment for age-related macular degeneration. Approximately one year ago, the patient experienced a cardiac event leading to stent placement after presenting with symptoms such as indigestion and weight loss. The patient was diagnosed with coronary artery disease and hyperlipidemia, treated with a coronary stent, and initially managed with Brilinta for one year following the procedure. He has since ceased Brilinta and agreed to commence a statin for ongoing cholesterol management, although he expressed concerns about the statin?s compatibility with alcohol consumption due to social drinking habits. Nicotine dependence is in remission, as the patient has ceased smoking following medical advice post-heart attack. Concurrently, he is receiving monthly ocular injections for age-related macular degeneration, after visual disturbance in his left eye was noted. The patient maintains an exercise regimen with weight lifting and utilizes protein supplements to support weight gain and muscle development, having increased his weight from 130 pounds back to 165 pounds since the cardiac event. Social History - Former smoker, quit one year ago following coronary event. - Currently engages in risky alcohol consumption, particularly on weekends. - Regularly exercises with weight lifting and uses protein supplements for fitness. - Completed a [employer] cruise recently where alcohol consumption increased. - Lives with a girlfriend who participates in social activities separately. Review of Systems - Cardiovascular: Reports prior heart attack with stent placement; hypertension managed with medication. - Vision: Reports visual disturbance in left eye, undergoing regular injections. - Neurological: Denies new neurological symptoms. - Rectal/Colon: Refuses colonoscopy or Cologuard testing; no reported symptoms. - Gastrointestinal: Previously reported indigestion associated with cardiac event. - Smoking history: Denies current tobacco use. - Alcohol: Reports consuming 6-7 beers during weekends. Concerns regarding liver impact. - General: Denies current unexplained weight changes; has successfully regained weight post-cardiac event. Physical Exam General: Cooperative and healthy appearing Nutritional Appearance: Well nourished Orientation/consciousness: Patient oriented x3 Limitations: No limitations Head: Normal to inspection General: Appearance normal, both eyes and all related structures Neck: Normal visual inspection Chest: Normal palpation of entire chest wall Respiratory: N ormal respiratory effort Neurology: Patient oriented x3, reports visual disturbance with a black spot in vision when one eye is closed. Results - Labs: Comprehensive metabolic panel and lipid profile discussed, patient reports normal cholesterol results. - Tests: Monthly ocular injections for macular degeneration ongoing, assessment and reevaluation planned post-fifth injection. Plan 1. Coronary Artery Disease - Continue on statins and monitor cardiovascular outcomes. 2. Nicotine Dependence, In Remission - Encourage continued abstinence from tobacco use. 3. Age-Related Macular Degeneration - Maintain ocular treatment and reassess after fifth injection. 4. Hyperlipidemia - Start on statins, mindful of alcohol interactions. 5. Hypertension - Follow current treatment protocol with amlodipine. 6. Alcohol Use, Risky Drinking - Advise moderated alcohol consumption and explore further guidance as needed. Discussion Notes During the visit, I discussed with the patient the importance of adhering to the statin therapy for managing hyperlipidemia, addressing his concerns about liver health with alcohol consumption. Risks associated with excessive alcohol intake were highlighted, particularly its potential interaction with statins. We reviewed the benefits of continuing ocular injections for macular degeneration, planning for reevaluation after the fifth injection. I reiterated the necessity of compliance with his antihypertensive regimen and encouraged the maintenance of smoking cessation. Furthermore, I advised the patient to moderate his alcohol intake considering past risky drinking behavior and possible impact on overall health. Follow-up plans and potential future adjustments were discussed based on his responses to the current treatments. Patient Instructions - Take prescribed medication as directed. - Continue regular ocular injections for eye health. - Avoid smoking; stay smoke-free. - Limit alcohol intake, especially on weekends. - Engage in regular physical activity and maintain current exercise routine. - Follow up for routine blood work and eye assessment. - Call our office with any new or worsening symptoms. Orders: Orders Complete Blood Count no Diff Today I10 - Essential (primary) hypertension Basic Metabolic Panel Today I10 - Essential (primary) hypertension Liver Panel Today I10 - Essential (primary) hypertension Lipid Panel Today I10 - Essential (primary) hypertension Thyroid Stimulating Hormone Today I10 - Essential (primary) hypertension UA and rflx microscopic Today I10 - Essential (primary) hypertension Medications: Refilled amlodipine 10 mg PO DAILY 90 tabs 1RF atorvastatin 20 mg PO BEDTIME 60 tabs 3RF I20.89 - Other forms of angina pectoris
== END 2024-09-03 13:23 | disposition home or self-care (01) ==
LOC: HO.HMCHD 12:45
PROVIDERS: PCP Internal Medicine; Visit Provider Internal Medicine
DX: I10 Essential (primary) hypertension (principal); I21.4 Non-ST elevation (NSTEMI) myocardial infarction; Z00.00 Encounter for general adult medical examination without abnormal findings

== ENCOUNTER → 2024-09-03 12:45 | Outpatient (BNVA) | payer BC, SELFPAY | PROVIDERS: PCP Internal Medicine; Visit Provider Internal Medicine ==

== ENCOUNTER 2024-09-04 07:09 | Outpatient (REF) | payer BC, SELFPAY ==
[2024-09-04 08:42] LABS: Hematocrit 37.9 % (42.0-52.0); Hemoglobin 12.7 g/dl (14.0-18.0); Mean Corpuscular HGB Conc 33.5 g/dl (31.0-36.0); Mean Corpuscular Hemoglobin 30.7 pg (27.0-33.0); Mean Corpuscular Volume 91.5 fL (80.0-98.0); Mean Platelet Volume 10.8 fL (9.4-12.4); Platelet Count 284 X10*3/uL (160-400); Red Blood Count 4.14 X10*6/uL (4.60-5.80); Red Cell Distribution Width 14.5 % (11.0-16.0); White Blood Count 6.2 X10*3/uL (4.8-10.8)
[2024-09-04 08:55] LABS: Appearance Urine Clear; Color Urine Yellow; Glucose Urine UA Negative (Negative); Leukocyte Esterase Urine Negative (Negative); Nitrite Urine Negative (Negative); PH 5.5 (5.0-9.0); Urine Blood Negative (Negative); Urine Ketones Trace mg/dL (Negative); Urine Protein Negative (Neg-Trace)
[2024-09-04 09:19] LABS: Alanine Aminotransferase 33 U/L (0-40); Alkaline Phosphatase 65 U/L (39-117); Anion Gap 13 (12-20); Aspartate Amino Transferase 25 U/L (5-37); Bilirubin Direct 0.2 mg/dL (0.0-0.5); Bilirubin Total 0.6 mg/dL (0.0-1.0); Blood Urea Nitrogen 22 mg/dL (9-16); Calcium 8.8 mg/dL (8.4-10.2); Carbon Dioxide 25 mmol/L (22-29); Chloride 107 mmol/L (96-108); Cholesterol 169 mg/dL (<200); Estimated Glomerular Filt Rate 58; Glucose Random 96 mg/dL (60-115); Potassium 3.9 mmol/L (3.3-5.1); Sodium 141 mmol/L (135-145); Total Protein 6.5 g/dL (6.5-8.0); Triglycerides 106 mg/dL (<150)
[2024-09-04 10:03] LABS: HDL Cholesterol 70 mg/dL (>40); LDL Cholesterol Calculated 78 mg/dL (<100); Thyroid Stimulating Hormone 0.97 uIU/mL (0.32-4.0)
== END 2024-09-04 07:10 | disposition home or self-care (01) ==
LOC: HO.LAB 07:09
PROVIDERS: PCP Internal Medicine; Visit Provider Internal Medicine
DX: I10 Essential (primary) hypertension (principal)
CPT/HCPCS: 36415; 80048; 80061; 80076; 81003; 84443; 85027

== ENCOUNTER 2025-03-04 13:34 | Outpatient (REF) | payer BC, SELFPAY ==
[2025-03-04 15:17] LABS: Total Hemoglobin (HGBA1C) 3391.7267 umol/L
[2025-03-04 15:33] LABS: Alanine Aminotransferase 24 U/L (0-40); Albumin Level 4.4 g/dL (3.5-5.0); Alkaline Phosphatase 77 U/L (39-117); Anion Gap 11 (12-20); Aspartate Amino Transferase 26 U/L (5-37); Blood Urea Nitrogen 22 mg/dL (9-16); Calcium 9.0 mg/dL (8.4-10.2); Carbon Dioxide 29 mmol/L (22-29); Chloride 104 mmol/L (96-108); Estimated Glomerular Filt Rate > 60; Potassium 4.1 mmol/L (3.3-5.1); Sodium 140 mmol/L (135-145); Total Protein 6.7 g/dL (6.5-8.0)
== END 2025-03-04 13:35 | disposition home or self-care (01) ==
LOC: HO.LAB 13:34
PROVIDERS: PCP Student in an Organized Health Care Education/Training Program; Visit Provider Student in an Organized Health Care Education/Training Program
DX: I12.9 Hypertensive chronic kidney disease with stage 1 through stage 4 chronic kidney disease, or unspecified chronic kidney disease (principal); N18.31 Chronic kidney disease, stage 3a; I21.4 Non-ST elevation (NSTEMI) myocardial infarction; E78.49 Other hyperlipidemia; I25.118 Atherosclerotic heart disease of native coronary artery with other forms of angina pectoris; F17.201 Nicotine dependence, unspecified, in remission; Z13.1 Encounter for screening for diabetes mellitus
CPT/HCPCS: 36415; 80053; 83036; 96127

== ENCOUNTER 2025-03-04 13:34 | Outpatient (AMB) | payer BC, SELFPAY ==
[2025-03-04 08:02] VITALS: BP 130/82; PULSE 62; TEMP 36.4; O2SAT 99; BMI 25.3
--- NOTE | 2025-03-04 08:02 | A.OFFPC_ITS ---
Vital Signs 03/04/25 08:02 Height 5 ft 9 in Weight 171 lb 6 oz BMI 25.3 BP 130/82 Blood Pressure Location Lt brachial Position Sitting Pulse 62 Pulse Source Pulse Oximeter Temp 97.6 F Temp Source Temporal Artery Scan Pulse Oximetry (%) 99 Oxygen Delivery Method Room Air Intake Visit Reasons: PEDRO LUIS - see comments Certified Substance Abuse Counselor Required: No Accompanied by: Self / Same As Patient Allergies lisinopril (Lisinopril) Allergy (Unknown, Verified 03/04/25 08:02) UNKNOWN Medication List - Last Reconciled 03/04/25 by Shantanu Neff MD amlodipine 10 mg PO DAILY aspirin 81 mg PO DAILY atorvastatin 20 mg PO BEDTIME [id number]-[id number]-WD-Bf-La-slshfij-lutein 0.4-162-18 mg 1 tab PO DAILY Tobacco use date assessed: 03/04/25 Fall risk assessment: No Falls in past year Last assessed Fall Risk: 03/04/25 Dental Screening Dental Screen Date: 03/04/25 Did you have a dental visit in the last 12 months?: Yes Did you have a dental problem in the last 6 months where you did not have access to dental care?: No HPI HPI Comments History of Present Illness Details The patient is a 74-year-old male presenting for a follow-up visit and to establish care. He reports feeling well with no active complaints. The patient has a history of coronary artery disease, for which he underwent stent placement in his chest after having heart attacks. Post-procedure, he was prescribed aspirin 81 mg, amlodipine 10 mg for hypertension, and atorvastatin 20 mg for borderline high cholesterol. The patient reports that he quit taking atorvastatin. He also took Brilinta, which he has since stopped, citing issues with prolonged bleeding from minor cuts. His last cholesterol reading in August showed a total cholesterol of 169 and an LDL of 78. The patient has a 50-year history of smoking a pack of cigarettes per day, which he quit at the time of his heart attacks. He participated in cardiac rehabilitation for 37 weeks, attending every session. He also engages in weightlifting three times a week for an hour and a half and takes a protein supplement. Past medical history is also significant for stage 3A kidney disease. He also has a history of a pelvic fracture after a fall; he delayed seeking care for a week, and by the time he was seen, the fracture was already healing. Regarding preventative screenings, the patient has had chest x-rays for lung cancer screening in the past, which were clear. He has never had a colonoscopy and refuses to have one, also declining stool-based testing due to concerns about false positives. Medical History: - Coronary artery disease - Myocardial infarction - Hypertension - Borderline hyperlipidemia - Chronic kidney disease, stage 3A - History of pelvic fracture - Tobacco use (50 pack-year history, bella t) Surgical History: - Cardiac stent placement Medications: - Aspirin 81 mg daily for coronary arter y disease. - Amlodipine 10 mg daily for hypertensio n. - Atorvastatin 20 mg for hyperlipidemia (patient reports non-adherence). - Brilinta (stopped) for coronary artery disease. Diagnostic Results: - Vitals: Blood pressure 130/82 mmHg. - Labs (August of this year): Total Cholest mich 169 mg/dL, LDL Cholesterol 78 mg/dL. - Labs: Thyroid function tests were good on last results. - Imaging: Prior chest x-rays for lung s creening were clear. Social History: - Tobacco Use: Patient has a 50-year his tory of smoking one pack of cigarettes per day. - He quit smoking immediately after his myocardial infarctions. - Exercise: Reports lifting weights for an hour and a half, three times a week. - He also completed a 37-week cardiac re habilitation program, attending all sessions. - Nutrition: Reports eating more and has gained weight to 171.6 lbs. - He uses a protein supplement. 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 [facility] Medical History (Updated 03/04/25 @ 14:15 by Shantanu Neff MD) Stage 3a chronic kidney disease (CKD) Tobacco use disorder, severe, in sustained remission Hyperlipidemia Acute non-ST elevation myocardial infarction (NSTEMI) Frequent PVCs Smoker HTN (hypertension) Family History (Updated 03/04/25 @ 13:47 by Gricel Jaramillo MA) Father Lung cancer Mother No problems noted. Social History Household Members: Significant Other Housing: House Patient Tobacco Use Status: Former Tobacco user Tobacco use type: Cigarette e-Cigarette/Vaping Use: Former Use Substance Use Type: Marijuana Advance Directives Date on File: 07/25/23 service: Yes Current occupational status: retired Current occupation: rt handed Cognitive needs: No Hearing needs: No Vision needs: Yes (reading glasses) Questionnaire PHQ-9 Over the last 2 weeks, how often have you been bothered by any of the following problems? 1. Little interest or pleasure in doing things: not at all 2. Feeling down, depressed, or hopeless: not at all 3. Trouble falling or staying asleep, or sleeping too much: not at all 4. Feeling tired or having little energy: not at all 6. Feeling bad about yourself - or that you are a failure or have let yourself or your family down: not at all 7. Trouble concentrating on things, such as reading the newspaper or watching television: not at all 8. Moving or speaking so slowly that other people could have noticed. Or the opposite - being so fidgety or restless that you have been moving around a lot more than usual: not at all 9. Thoughts that you would be better off or of hurting yourself in some way: not at all Source: Developed by Drs. Gary Oro, Shawanda Merino, Israel Cedillo and colleagues, with an educational nona from [employer]. Thrive Questionnaire Date Thrive assessed: 03/04/25 I am a: Patient Within the past 12 months, did the food you bought not last and you didn't have the money to get more?: Never true Within the past 12 months, did you worry whether your food would run out before you got money to buy more?: Never true Do you have trouble paying for medicines?: No Do you have trouble getting transportation to medical appointments?: No Do you have trouble paying your heating and electricity bill?: No Do you have trouble taking care of your child, family member or friend?: No Do you have trouble with day-to-day activities such as bathing, preparing meals, shopping, managing finances, etc.?: No Are you currently unemployed and looking for a job?: No Are you interested in more education?: No THRIVE Score: 0 AUDIT C Alcohol Use Questionnaire (AUDIT-C) 1. How often do you have a drink containing alcohol?: Monthly or less 2. How many drinks containing alcohol do you have on a typical day when you are drinking?: 1 or 2 3. How often do you have six or more drinks on one occasion?: Less than monthly Total Score: 2 OTILIO-7 AMB Questionnaire OTILIO-7 Date OTILIO - 7 assessed: 03/04/25 Feeling nervous, anxious, or on edge: 0 = Not at all Not being able to stop or control worryin = Not at all Worrying too much about different things: 0 = Not at all Trouble relaxin = Not at all Being so restless that it is hard to sit still: 0 = Not at all Becoming easily annoyed or irritable: 0 = Not at all Feeling afraid as if something awful might happen: 0 = Not at all Total OTILIO-7 score (0-4 normal; 5-9 mild; 10-14 moderate; 15-21 severe): 0 Source: Developed by Drs. Gary Oro, Shawanda Merino, Israel Cedillo and colleagues, with an educational nona from [employer]. Review of Systems Narrative - General: Denies any current complaints and reports feeling good. All systems reviewed & are unremarkable except as reviewed in HPI and above Physical exam (Primary Care) Vital Signs: Last Vital Signs Temp 97.6 F 03/04/25 08:02 Pulse 62 03/04/25 08:02 BP 130/82 03/04/25 08:02 Pulse Ox 99 03/04/25 08:02 Oxygen Delivery Method Room Air 03/04/25 08:02 BMI result Body Mass Index 25.3 Tobacco/Smoking Status: Tobacco use Status Tobacco use date assessed 03/04/25 03/04/25 08:03 Patient Tobacco Use Status Former Tobacco user 03/04/25 08:03 Tobacco use type Cigarette 03/04/25 08:03 e-Cigarette/Vaping Use Former Use 03/04/25 08:03 Thrive Assessment: Date of Thrive Assessment Date Thrive assessed 03/04/25 03/04/25 08:03 Narrative General: +Alert and oriented, Well nourished, No acute distress. Eye: Pupils are equal, round and reactive to light, Intact accommodation, Extraocular movements are intact, Normal conjunctiva, Vision unchanged. HENT: Normocephalic, Atraumatic, Tympanic membranes are clear, Normal hearing, Oral mucosa is moist, No pharyngeal erythema, Ear canals patent. Respiratory: Lungs CTA bilaterally, No wheeze, Respirations are non-labored. Cardiovascular: Regular rate, Regular rhythm, S1 auscultated, S2 auscultated, No murmur, Good pulses equal in all extremities, Normal peripheral perfusion, No edema. Gastrointestinal: Soft, Non-tender, Non-distended, Normal bowel sounds, No organ omegaly. Musculoskeletal: Normal range of motion, Normal strength, No tenderness, No swelling, No deformity, Normal gait. Integumentary: Warm, Dry, [place], Intact. Neurologic: Alert, Oriented, Normal sensory, Normal motor function, No focal defects, Cranial Nerves II-XII are grossly intact, Normal deep tendon reflexes. Psychiatric: Cooperative, Appropriate mood & affect, Normal judgment. Coding Level of Care Code Est Pt Level 4 (01074) Complex EM visit Add On G2211 Diagnoses Primary hypertension I10 Hypertension type: primary hypertension Acute non-ST elevation myocardial infarction (NSTEMI) I21.4 Other hyperlipidemia E78.49 Hyperlipidemia type: other hyperlipidemia Tobacco use disorder, severe, in sustained remission F17.201 Stage 3a chronic kidney disease (CKD) N18.31 Assessment & Plan Assessment & Plan (1) HTN (hypertension): Comment: - Blood pressure is well-controlled at 130/82 mmHg on amlodipine 10 mg daily. - Will continue current medication regimen. Code(s): I10 - Essential (primary) hypertension Category: Medical Qualifiers: Hypertension type: primary hypertension Qualified Code(s): I10 - Essential (primary) hypertension (2) Acute non-ST elevation myocardial infarction (NSTEMI): Comment: - 07/27/[address] Kurtz: LMCA: Mild disease left main, LADL mild luminal irregularities (<30%), LCx: Minimal luminal irregularities, RCA: Prox RCA mid subsection 99% stenosis - PCI to RCA with SHAUN - The patient is status post stent placement and reports taking aspirin 81 mg daily. - He will follow up with his manufacturing planner, Dr. Suh, next week. Code(s): I21.4 - Non-ST elevation (NSTEMI) myocardial infarction Category: Medical (3) Hyperlipidemia: Comment: - Continues to be on atorvastatin 20mg Daily - Lipid Panel from September 2024 reviewed with LDL at 71 Code(s): E78.5 - Hyperlipidemia, unspecified Category: Medical Qualifiers: Hyperlipidemia type: other hyperlipidemia Qualified Code(s): E78.49 - Other hyperlipidemia (4) Tobacco use disorder, severe, in sustained remission: Comment: - Quit smoking over a year ago after his Cardiac Event - Over 50 Pack Year smoking history therefore will refer for lung cancer screening Code(s): F17.201 - Nicotine dependence, unspecified, in remission Category: Medical (5) Stage 3a chronic kidney disease (CKD): Comment: - This is a stable, chronic condition that is common with aging and will be monitored. - Baseline Creatinine 1.2 Code(s): N18.31 - Chronic kidney disease, stage 3a Category: Medical Plan: Health Maintenance: - Diabetes Screening: Patient will have an A1c drawn today to screen for diabetes, as this test has not been performed in a while. - Colon Cancer Screening: Patient was advised on the importance of screening but declined both colonoscopy and stool-based tests, citing personal beliefs and concerns about false positives. - Lung Cancer Screening: Due to a 50 pack-year smoking history, an annual low- dose CT scan of the chest will be arranged for the patient. - Osteoporosis Screening: A bone density scan will be arranged to assess bone health, particularly given his history of a pelvic fracture. - Lifestyle: Patient is active, lifts weights three times per week, and completed a cardiac rehab program. - He was commended for quitting smoking. Patient was informed and verbally consented to the use of an ambient scribe for clinic note documentation during this visit. Plan As this was our first visit, I discussed with the patient my preference for closer follow-up initially, and we agreed on a 3-month follow-up appointment, with the plan to extend to every 6 months thereafter if all remains stable. I explained that this would allow us to keep a close eye on his labs, particularly his kidney function. I informed the patient of the plan to order several studies for health screening purposes. I ordered an A1c blood test to be done today to check for diabetes. I also explained the need for an annual low-dose CT scan for lung cancer screening due to his extensive smoking history, as well as a one-time bone density scan due to his previous pelvic fracture, and he was agreeable to this. We discussed colon cancer screening, but the patient firmly declined both colonoscopy and stool-based testing. I reviewed his medications and discussed the importance of statin therapy for secondary prevention of cardiovascular events. I also went ahead and sent in his prescription refills and clarified the new process where the mail-order pharmacy should contact our office directly for future refills. Orders: Orders Hemoglobin A1c Today Z13.1 - Encounter for screening for diabetes mellitus Comprehensive Met. Panel Today N18.31 - Chronic kidney disease, stage 3a XR DEXA axial skeleton Today Z91.89 - Other specified personal risk factors, not elsewhere classified Referrals Lung Cancer Screening Referral F17.201 - Nicotine dependence, unspecified, in remission Medications: Refilled amlodipine 10 mg PO DAILY 90 tabs 3RF atorvastatin 20 mg PO BEDTIME 90 tabs 3RF I20.89 - Other forms of angina pectoris Patient Instructions: - Go to the hospital lab today to get your blood drawn for a test to check your sugar levels (A1c). - You will receive a call to schedule two imaging tests: a low-dose CT scan of your lungs and a bone density scan. - Continue taking your current medications as prescribed. - I have sent in your prescription refills. In the future, please have your specialty pharmacy contact our office directly for refills. - Please follow up with your heart doctor, Dr. Suh, as scheduled. - Schedule a follow-up appointment at this clinic in 3 months.
== END 2025-03-04 14:12 | disposition home or self-care (01) ==
LOC: HO.HMCHD 13:34
PROVIDERS: PCP Student in an Organized Health Care Education/Training Program; Visit Provider Student in an Organized Health Care Education/Training Program
DX: I10 Essential (primary) hypertension (principal); I21.4 Non-ST elevation (NSTEMI) myocardial infarction; E78.49 Other hyperlipidemia; F17.201 Nicotine dependence, unspecified, in remission; N18.31 Chronic kidney disease, stage 3a

== ENCOUNTER 2025-03-11 14:06 | Outpatient (AMB) | payer BC, SELFPAY ==
--- NOTE | 2025-03-11 14:15 | MHC.OFFVIS ---
Vital Signs 03/11/25 14:17 Height 5 ft 9 in Weight 169 lb 12.095 oz BMI 25.1 BP 140/70 H Blood Pressure Location Lt brachial Position Sitting Pulse 56 Pulse Source Monitor Intake Visit Reasons: 6m follow up Intake Note: 6 mth f/up Ice Cream Freezer Required: No Accompanied by: Self / Same As Patient Allergies lisinopril (Lisinopril) Allergy (Unknown, Verified 03/04/25 08:02) UNKNOWN Medication List - Last Reconciled 03/11/25 by Jake Kurtz MD amlodipine 10 mg PO DAILY aspirin 81 mg PO DAILY atorvastatin 20 mg PO BEDTIME [id number]-[id number]-MU-Re-Dp-pzmlqfd-lutein 0.4-162-18 mg 1 tab PO DAILY HPI Comments Details: 74-year-old gentleman who presented with acute coronary syndrome and was transferred to [facility] where cardiac catheterization showed subtotal right coronary artery occlusion which was treated with drug-eluting stent. Subsequently his echocardiography has shown normal LVEF without any wall motion abnormalities. He has been on aspirin and Brilinta. He had some premature ventricular complexes during cardiac rehabilitation and was started on metoprolol which was titrated to 50 mg twice a day but he had significant fatigue and subsequently was changed to atenolol 25 mg daily. He returns for follow-up today. He has been feeling cold it and this is something unusual for him. He is bradycardic with heart rate 41 beats per minute on EKG. He has some dizziness off and on when he stands up. No chest discomfort. No shortness of breath. He has been physically active since the ACS episode. 07/02/2024: He is here for follow-up. He is denying any chest discomfort shortness of breath. He has been exercising regularly without any exertional symptoms. Previously was getting dizzy and had bradycardia and atenolol was stopped. He is saying that since stopping atenolol he has done significantly better and feels more energetic. He is taking aspirin and Brilinta and we discussed that as he runs out of Brilinta he can stop taking it and can stay on aspirin monotherapy. He currently is not on statins. 03/11/2025: He is here for follow-up. He is denying any symptoms with activities. Blood pressure is slightly elevated but he is saying that recent blood pressure check was 130s. He is currently taking aspirin monotherapy. He is asking for refills on atorvastatin. PENDING SALE TO [facility] Medical History Stage 3a chronic kidney disease (CKD) Tobacco use disorder, severe, in sustained remission Hyperlipidemia Acute non-ST elevation myocardial infarction (NSTEMI) Frequent PVCs Smoker HTN (hypertension) Family History Father Lung cancer Mother No problems noted. Social History Household Members: Significant Other Housing: House Patient Tobacco Use Status: Former Tobacco user Tobacco use type: Cigarette e-Cigarette/Vaping Use: Former Use Substance Use Type: Marijuana Advance Directives Date on File: 07/25/23 service: Yes Current occupational status: retired Current occupation: rt handed Cognitive needs: No Hearing needs: No Vision needs: Yes (reading glasses) Review of Systems Const Denies chills, Denies fatigue, Denies fever(s), Denies frequent falls, Denies weakness, Denies weight gain and Denies weight loss ENT Denies dizziness Card Denies chest pain, Denies leg edema, Denies lightheadedness, Denies palpitations, Denies dyspnea and Denies dyspnea on exertion Resp Denies cough, Denies dyspnea and Denies dyspnea on exertion GI Denies hematochezia Musc Denies abnormal gait, Denies muscle weakness, Denies numbness, Denies radiating pain into limb and Denies tingling Neuro Denies abnormal gait, Denies dizziness, Denies frequent falls, Denies numbness, Denies tingling and Denies weakness Endo Denies fatigue and Denies palpitations Physical Exam Vital Signs: Last Vital Signs Pulse 56 03/11/25 14:17 BP 140/70 H 03/11/25 14:17 BMI result Body Mass Index 25.1 GENERAL APPEARANCE: in no acute distress, pleasant. NECK: no carotid bruit, no jugular venous distention. SKIN: no suspicious lesions, warm and dry. HEART: no murmurs, regular rate and rhythm. LUNGS: clear to auscultation bilaterally. ABDOMEN: soft, nontender. EXTREMITIES: no edema. PERIPHERAL PULSES: equal. NEUROLOGIC: No gross deficits, AAO X 3 Office Procedures EKG Details: Sinus bradycardia 56 beats per minute, normal axis, inferior infarct, QTC 397 milliseconds. [id number], Complete Assessment & Plan Assessment & Plan (1) Stable angina: Code(s): I20.89 - Other forms of angina pectoris Category: Medical Plan Pleasant 74 year gentleman who is here for follow-up. He has known history of coronary artery disease with previous acute coronary syndrome and underwent PCI to right coronary artery. He had some PVCs post procedure and was on beta-venu but developed significant fatigue and dizziness. He was on atenolol which was stopped. Since then he has done well and has no significant symptoms. He is exercising regularly. No PVCs noted on repeat EKG. He is on aspirin monotherapy at this point. No changes in medications recommended currently. Follow up with us in 1 year. Thank you for allowing me to participate in the care of your patient. Please feel free to contact me if you have any questions. Medications: Refilled atorvastatin 20 mg PO BEDTIME 90 tabs 4RF I20.89 - Other forms of angina pectoris Coding Level of Care Code Est Pt Level 4 (33468) Diagnoses Stable angina I20.89 CPT Codes EKG - CPT: 97308-[id number], Complete ([id number])
[2025-03-11 14:17] VITALS: BP 140/70; PULSE 56; BMI 25.1
== END 2025-03-11 14:40 | disposition home or self-care (01) ==
LOC: HO.HCS 14:07
PROVIDERS: PCP Internal Medicine; Visit Provider Internal Medicine Cardiovascular Disease
DX: I20.89 Other forms of angina pectoris (principal)
CPT/HCPCS: 93010; 99214

== ENCOUNTER → 2025-03-11 14:06 | Outpatient (BNVA) | payer BC, SELFPAY | PROVIDERS: PCP Internal Medicine; Visit Provider Internal Medicine Cardiovascular Disease | DX: I20.89 Other forms of angina pectoris (principal) | CPT/HCPCS: 93005 ==